=== PATIENT | male | born 1975 | race Caucasian/White ===

== ENCOUNTER 2021-04-02 13:17 | Emergency (ER) | payer OTHER, SELFPAY ==
--- NOTE | 2021-04-02 | ECG_ITS ---
Test Reason : chest pressure Blood Pressure : / mmHG Vent. Rate : 093 BPM Atrial Rate : 093 BPM P-R Int : 162 ms QRS Dur : 082 ms QT Int : 340 ms P-R-T Axes : 069 -04 -01 degrees QTc Int : 422 ms Normal sinus rhythm Minimal voltage criteria for LVH, may be normal variant ( R in aVL ) Borderline ECG When compared with ECG of 16-DEC-2015 09:39, No significant change was found Referred By: Generic ED Physician Electronically Signed By:BREE OLIVA MD
--- NOTE | ~2021-04-02 | XR_ITS ---
EXAMINATION: XR CHEST CLINICAL INFORMATION: Chest pain COMPARISON: 02/22/2014 TECHNIQUE: Frontal view of the chest was obtained. FINDINGS: No significant abnormality is noted involving the heart, lungs, mediastinum, bony thorax or soft tissues. XR/XR chest 1V IMPRESSION: Unremarkable examination.
[2021-04-02 13:20] VITALS: BP 205/124; PULSE 94; TEMP 36.5; O2SAT 97; BMI 22.9
[2021-04-02 13:40] LABS: Glucose, Whole Blood 132 mg/dL (60-115)
[2021-04-02 13:41] LABS: MANUAL DIFF FLAG NO
[2021-04-02 13:42] LABS: Basophils Percent Auto 0.7 % (0-2); Eosinophils Absolute Auto 0.1 X10*3/uL (0.0-0.4); Eosinophils Percent Auto 2.8 % (0-4); Hematocrit 40.1 % (42.0-52.0); Hemoglobin 14.3 g/dl (14.0-18.0); Imm Gran Abs Auto 0.02 X10*3/uL (0.00-0.03); Imm Gran Pct Auto 0.5 % (0.0-0.4); Lymphocytes Absolute Auto 1.3 X10*3/uL (1.2-4.9); Mean Corpuscular HGB Conc 35.7 g/dl (31.0-36.0); Mean Corpuscular Volume 98.3 fL (80.0-98.0); Mean Platelet Volume 9.3 fL (9.4-12.4); Monocytes Absolute Auto 0.4 X10*3/uL (0.1-1.2); Monocytes Percent Auto 10.1 % (2-11); Neutrophils Absolute Auto 2.4 x10*3/uL (2.0-8.3); Neutrophils Percent Auto 55.9 % (45-73); Platelet Count 197 X10*3/uL (160-400); Red Blood Count 4.08 X10*6/uL (4.60-5.80); White Blood Count 4.4 X10*3/uL (4.8-10.8)
[2021-04-02 13:58] LABS: Anion Gap 15 (12-20); Blood Urea Nitrogen 14 mg/dL (9-16); Carbon Dioxide 25 mmol/L (22-29); Chloride 101 mmol/L (96-108); Creatinine Clr Calc Pharmacy 101.8; Estimated Glomerular Filt Rate > 60; Glucose Random 144 mg/dL (60-115); Potassium 4.1 mmol/L (3.3-5.1); Sodium 137 mmol/L (135-145)
[2021-04-02 14:05] LABS: Troponin-I High Sensitivity < 3.5 ng/L (<3.5-35.0)
== END 2021-04-02 16:52 | disposition left against medical advice (07) ==
PROVIDERS: Emergency Provider Emergency Medicine; PCP Physician Assistant
DX: R07.9 Chest pain, unspecified (principal); M25.511 Pain in right shoulder; Z79.899 Other long term (current) drug therapy
CPT/HCPCS: 36415; 71045; 80048; 82947; 84484; 85025; 93005; 99283

== ENCOUNTER 2021-04-28 12:47 | Day surgery (SDC) | payer OTHER, SELFPAY ==
[2021-04-21 19:40] VITALS: BMI 22.9
--- NOTE | 2021-04-27 09:05 | P.CONAN_ITS ---
Documented by User: Veena Vo NP 04/27/21 09:07 HPI - Anesthesia Eval Consult details Narrative: 45yo M for Upper Endoscopy and Colonoscopy +ETOH PMFSH Active Problems Active Problems: All Active Problems (Updated 04/21/21 @ 19:40 by Shannon Lawrence RN) Diverticulitis (Acute) BPPV (benign paroxysmal positional vertigo) (Acute) Screening for hypercholesterolemia (Acute) Screening for diabetes mellitus (DM) (Acute) Screening for hypothyroidism (Acute) Alcohol use disorder (Acute) Annual physical exam (Acute) HTN (hypertension) (Acute) Past Medical History Medical History ETOH abuse HTN (hypertension) Social History Social History (Updated 01/10/21 @ 16:12 by Sharan Omer PA-C) [facility] Alcohol intake: current Alcohol intake frequency: 3 or more drinks per day Alcohol type: beer and hard liquor Patient Tobacco Use Status: Current everyday Tobacco user Tobacco use type: Smokeless Tobacco Smoked in Last 30 Days: Yes e-Cigarette/Vaping Use: Currently Using Second Hand Smoke Exposure: No Use of substances other than those prescribed or required for medical reasons: No Are you DNR?: No Advance Directives: No Advance Directives Information Provided: No Advance Directives on File: No Recently lost weight without trying: No Nutrition Risks: No Nutritional Risk service: No Current occupational status: employed Meds Allergies Allergy/AdvReac Type Severity Reaction Status Date / Time Azythromycin AdvReac Unknown diarrhea Uncoded 04/21/21 19:28 Exam Exam Date and Time: April 27, 2021 0905 Height,Weight and Vital Signs: Height 5 ft 10 in Weight 72.575 kg Pertinent Lab Results Pertinent Lab Results: Laboratory Tests 04/02/21 04/02/21 13:36 13:36 WBC 4.4 L Hgb 14.3 Hct 40.1 L Plt Count 197 Sodium 137 Potassium 4.1 Chloride 101 Carbon Dioxide 25 BUN 14 Creatinine 0.94 Assessment and Plan Assessment Anesthesia Assessment: Chart Reviewed Documented by User: Cassy Matias MD 04/28/21 13:29 PMF Past Medical History Medical History ETOH abuse HTN (hypertension) Family History Family history of problems with anesthesia: No Surgical History History of Problems with Anesthesia: No Social History Social History (Updated 01/10/21 @ 16:12 by Sharan Omer PA-C) Housing: Condominium Alcohol intake: current Alcohol intake frequency: 3 or more drinks per day Alcohol type: beer and hard liquor Patient Tobacco Use Status: Current everyday Tobacco user Tobacco use type: Smokeless Tobacco Smoked in Last 30 Days: Yes e-Cigarette/Vaping Use: Currently Using Second Hand Smoke Exposure: No Use of substances other than those prescribed or required for medical reasons: No Are you DNR?: No Advance Directives: No Advance Directives Information Provided: No Advance Directives on File: No Recently lost weight without trying: No Nutrition Risks: No Nutritional Risk service: No Current occupational status: employed Meds Allergies Allergy/AdvReac Type Severity Reaction Status Date / Time Azythromycin AdvReac Unknown diarrhea Uncoded 04/21/21 19:28 Exam Airway Mallampati Class: II (Permanent upper bridge in front) TM Dist: >3cm Neck ROM: Full Heart: rrr Lungs: cta Assessment and Plan Assessment Anesthesia Assessment: Anesthesia Plan Discussed and Chart Reviewed Final Anesthetic Review Family History of Problems with Anesthesia: No History of Problems with Anesthesia: No NPO: Yes ASA Class: II Final Preanesthetic Review: No Changes in Pt Med Stat, Meds/Allgs Chart Reviewed and Consent Obtained/Reviewed Patient Risk: Intermediate Procedure Risk: Intermediate Anesthetic Plan Anesthetic Plan: MAC: Disposition: Standard PACU
[2021-04-28 13:15] VITALS: BP 151/103; PULSE 105; RESP 18; TEMP 36.8; O2SAT 98
[2021-04-28 13:33] VITALS: BP 151/103; PULSE 105; RESP 18; TEMP 36.8; O2SAT 98
[2021-04-28] MEDS: Lactated Ringers 1,000 ML 100 ML IVCONT (13:35)
[2021-04-28 15:11] VITALS: BP 102/72; PULSE 95; RESP 12; TEMP 36.1; O2SAT 96
--- NOTE | 2021-04-28 15:19 | PM.OP ---
Brief Operative Note Date of Service: 04/28/21 Pre-op diagnosis: GERD, Abnormal xray GI tract Post-op diagnosis: other (Gastritis, Hiatal hernia, Diverticulosis) Procedure: EGD with biopsies, Colonoscopy to the cecum and TI Surgeon: Miguel Angel Kumar Anesthesia: MAC Was an Information Security Director used for this Procedure?: No Estimated blood loss (mL): 2.0 Pathology: other (A. Gastric antrum B. EG Junction at 35cm) Condition: stable Disposition: PACU
[2021-04-28 15:26] VITALS: BP 118/76; PULSE 94; RESP 16; TEMP 36.1; O2SAT 96
--- NOTE | 2021-04-29 01:42 | OP_ITS ---
SURGEON: Miguel Angel Kumar MD INDICATIONS: The patient presents for evaluation of gastroesophageal reflux and abnormal CT scan of colon. Full consent has been obtained from him for this, including risks of bleeding and perforation. PREOPERATIVE DIAGNOSIS: POSTOPERATIVE DIAGNOSIS: PROCEDURE PERFORMED: Esophagogastroduodenoscopy with biopsies. Colonoscopy to the cecum and terminal ileum. ESTIMATED BLOOD LOSS: COMPLICATIONS: ANESTHESIA: Monitored anesthesia care. ASSISTANTS: SPECIMENS: PREOPERATIVE DIAGNOSES: Gastroesophageal reflux and abnormal CT scan of colon. POSTOPERATIVE DIAGNOSES: Gastroesophageal reflux and abnormal CT scan of colon, hiatal hernia, gastritis, diverticulosis, internal hemorrhoids. DESCRIPTION OF PROCEDURE: The patient was placed in the left lateral decubitus position. The Olympus video gastroscope was passed in the posterior oropharynx and upper esophagus under direct vision. The scope was passed slowly to the distal esophagus. The gastroesophageal junction appeared at 35 cm. There was some very slight irregularity, but no evidence of esophagitis nor any definitive evidence of Can mucosa. There was a small to moderate-sized hiatal hernia. The scope was advanced to pylorus and the duodenum was cannulated to the descending portion. The duodenum including the bulb appeared normal without mass or ulceration. The scope was withdrawn back to the stomach. The gastric antrum had some areas of edema and erythema, but no erosions or ulceration. There was good peristalsis. Biopsies were obtained from the antrum. The scope was retroflexed visualizing the proximal stomach carefully, which appeared normal, without any sign of mass or ulceration. The scope was straightened and withdrawn back to the esophagus. Biopsies were obtained at the EG junction at 35 cm. Proximal to this, the esophageal mucosa appeared normal. The scope was withdrawn from the patient. He was turned around for the colonoscopy. The digital rectal exam revealed no abnormalities. The Olympus video pediatric colonoscope was entered into the rectum and advanced easily to the cecum. Once in the cecum, I did identify normal-appearing cecal pouch with appendiceal orifice and a normal-appearing ileocecal valve. The terminal ileum was cannulated and appeared normal. The scope was withdrawn back in the colon. The entire cecum and ileocecal valve appeared normal. The scope was slowly withdrawn assessing all mucosal surfaces carefully. Preparation was excellent. I did not visualize any sign of polyps, colitis, nor angiodysplasia. There was a mild amount of diverticulosis noted in the descending and sigmoid colon. There was no evidence of any inflammation. In the rectum, the scope was retroflexed visualizing small internal hemorrhoids, but no other pathology. The rectal mucosa appeared normal. The scope was straightened and withdrawn from the patient. He tolerated the procedure well and was returned to the recovery area in stable condition. IMPRESSION: 1. Hiatal hernia, gastroesophageal reflux. 2. Gastritis. 3. Diverticulosis. 4. Internal hemorrhoids. PLAN: The results of the biopsies will be checked. He will continue his daily omeprazole as he does report that is working well for him. Even if H pylori is present on the gastric biopsies, I would not necessarily treat that at this time as he is otherwise asymptomatic. I would recommend a repeat colonoscopy in 10 years for further screening. If things are stable, he will see me on a p.r.n. basis. MD KELTON Levin/GRISELDA / [id number] MTDD
== END 2021-04-28 15:51 | disposition home or self-care (01) ==
PROVIDERS: PCP Physician Assistant; Visit Provider Internal Medicine
PROC: (CPT 45378; principal; 2021-04-28 14:00)
DX: R93.3 Abnormal findings on diagnostic imaging of other parts of digestive tract (principal); K57.30 Diverticulosis of large intestine without perforation or abscess without bleeding; K64.8 Other hemorrhoids; K29.50 Unspecified chronic gastritis without bleeding; K21.9 Gastro-esophageal reflux disease without esophagitis; K44.9 Diaphragmatic hernia without obstruction or gangrene; I10 Essential (primary) hypertension; F10.10 Alcohol abuse, uncomplicated; Z79.899 Other long term (current) drug therapy; Z88.1 Allergy status to other antibiotic agents; F17.290 Nicotine dependence, other tobacco product, uncomplicated
CPT/HCPCS: 45378; 43239; 88305; 88342; J2250; J3010

== ENCOUNTER 2022-06-08 11:40 | Emergency (ER) | payer OTHER, SELFPAY ==
--- NOTE | ~2022-06-08 | XR_ITS ---
EXAMINATION: XR TIBIA AND FIBULA, RIGHT CLINICAL INFORMATION: Right lower leg pain COMPARISON: Right ankle 09/01/2014 TECHNIQUE: AP and lateral views of the right tibia and fibula were obtained. FINDINGS: The bones and soft tissues are normal. No fracture. Incidental bone island of the distal tibia. XR/XR tibia fibula RT 2V IMPRESSION: Normal right tibia and fibula.
--- NOTE | ~2022-06-08 | US_ITS ---
EXAMINATION: US VENOUS ULTRASOUND WITH DOPPLER LOWER EXTREMITY, RIGHT CLINICAL INFORMATION: Right lower extremity pain. COMPARISON: No similar priors. TECHNIQUE: Ultrasound of the deep veins is performed from the hip to the calf with compression sonography and color and pulse Doppler assessment. Spectral analysis with color-flow imaging is performed. FINDINGS: There is normal venous compression and respiratory variation and augmented flow. The visualized common femoral vein, superficial femoral vein, profunda femoral vein, popliteal vein, and the trifurcation region shows no evidence of deep venous thrombosis. There is no significant popliteal fossa cyst. Targeted images of the soft tissues of proximal to distal right lateral calf in the area of pain as indicated by the patient with no mass or measurable collection. If the patient's symptoms persist, followup ultrasound in 5 days 7 days might be of value to exclude proximal propagation from a non-visualized calf vein. US/US venous duplex LE RT IMPRESSION: 1. No DVT demonstrated in the right lower extremity. 2. No mass or collection in the lateral right calf within the area of pain as indicated by the patient.
[2022-06-08 11:56] VITALS: BP 137/99; PULSE 90; RESP 17; TEMP 36.5; O2SAT 98; BMI 22.9
--- NOTE | 2022-06-08 11:58 | ED.GENADULT ---
HPI - General Adult General Chief complaint: Extremity Problem <LAILA Albrecht - Last Filed: 06/08/22 11:58> Stated complaint: R calf pain <LAILA Albrecht - Last Filed: 06/08/22 11:58> Time Seen by Provider: 06/08/22 12:13 <LAILA Albrecht - Last Filed: 06/08/22 11:58> Source: patient <Irene Bynum NP - Last Filed: 06/08/22 15:03> Mode of arrival: ambulatory <Irene Bynum NP - Last Filed: 06/08/22 15:03> Limitations: no limitations <Irene Bynum NP - Last Filed: 06/08/22 15:03> History of Present Illness HPI narrative: 46-year-old male here with pain over the right anterior aspect of the lower leg which began 08:00 o'clock this morning with no known injury or trauma. Patient denies any recent travel. No associated redness, swelling, fevers, shortness of breath. Patient reports he is on his feet a lot. He normally uses work boots for walking. <Irene Bynum NP - Last Filed: 06/08/22 15:03> Related Data Home medications: Previous Rx's Medication Instructions Recorded clobetasol 0.05 % scalp solution 1 appl topical DAILY 30 days #50 mL 01/16/22 hydroxyzine HCl 10 mg tablet 20 mg PO ONCE PRN panic attacks 10 01/16/22 days #20 tabs naltrexone 50 mg tablet 50 mg PO DAILY #90 tabs 01/16/22 omeprazole 20 mg capsule,delayed 20 mg PO DAILY #90 caps 03/15/22 release lisinopril 10 mg tablet 10 mg PO DAILY #90 tabs 05/06/22 <LAILA Albrecht - Last Filed: 06/08/22 11:58> Allergies/adverse reactions: Allergies Allergy/AdvReac Type Severity Reaction Status Date / Time Azythromycin AdvReac Unknown diarrhea Uncoded 01/16/22 16:17 <LAILA Albrecht - Last Filed: 06/08/22 11:58> Review of Systems Review of Systems: Yes all other systems are reviewed and are negative <Irene Bynum NP - Last Filed: 06/08/22 15:03> Constitutional: Constitutional: Reports no additional constitutional complaints, Denies body ache(s), Denies chills, Denies fever(s), Denies headache(s) and Denies weakness <Irene Bynum TELECOM NETWORK MANAGER - Last Filed: 06/08/22 15:03> Eyes: Eyes: Reports no additional eye complaints and Denies change in vision <Irene Bynum TELECOM NETWORK MANAGER - Last Filed: 06/08/22 15:03> ENT: Reports system reviewed and no additional complaints, except as documented, Denies dizziness, Denies headache(s), Denies nasal congestion, Denies nasal discharge and Denies neck pain <Irene Bynum TELECOM NETWORK MANAGER - Last Filed: 06/08/22 15:03> Cardiovascular: Cardiovascular: Reports no additional cardiovascular complaints, Denies chest pain, Denies leg edema and Denies dyspnea <Irene Bynum TELECOM NETWORK MANAGER - Last Filed: 06/08/22 15:03> Respiratory: Respiratory: Reports no additional respiratory complaints, Denies cough and Denies dyspnea <Irene Bynum TELECOM NETWORK MANAGER - Last Filed: 06/08/22 15:03> Gastrointestinal: Gastrointestinal: Reports no additional gastrointestinal complaints, Denies abdominal pain, Denies diarrhea, Denies nausea and Denies vomiting <Irene Bynum TELECOM NETWORK MANAGER - Last Filed: 06/08/22 15:03> Genitourinary: Genitourinary: Denies urinary incontinence <Irene Bynum TELECOM NETWORK MANAGER - Last Filed: 06/08/22 15:03> Musculoskeletal: Musculoskeletal: Reports no additional musculoskeletal complaints, Denies back pain, Reports arthralgias, Denies joint swelling, Denies limited range of motion, Denies neck pain, Denies numbness and Denies tingling <Irene Bynum TELECOM NETWORK MANAGER - Last Filed: 06/08/22 15:03> Integumentary/Breasts: Skin/Breast: Reports system reviewed and no additional complaints, except as docu and Denies rash <Irene Bynum TELECOM NETWORK MANAGER - Last Filed: 06/08/22 15:03> Neurologic: Reports system reviewed and no additional complaints, except as documented, Denies dizziness, Denies headache(s), Denies numbness, Denies tingling and Denies weakness <Irene Bynum NP - Last Filed: 06/08/22 15:03> [facility] Past Medical History Attestation statement: The following information was validated with the patient. <Irene Bynum NP - Last Filed: 06/08/22 15:03> Source: old records reviewed and nursing notes reviewed <Irene Bynum NP - Last Filed: 06/08/22 15:03> Medical History: Medical History ETOH abuse HTN (hypertension) <LAILA Albrecht - Last Filed: 06/08/22 11:58> Social History Social History: Social History [facility] Alcohol intake: current Alcohol intake frequency: 3 or more drinks per day Alcohol type: beer and hard liquor Patient Tobacco Use Status: Current everyday Tobacco user Tobacco use type: Smokeless Tobacco e-Cigarette/Vaping Use: Currently Using Second Hand Smoke Exposure: No Advance Directives: No Advance Directives Information Provided: No service: No Current occupational status: employed <LAILA Albrecht - Last Filed: 06/08/22 11:58> Physical Exam ED Vital Signs: Vital Signs - 24 hr 06/08/22 11:56 Temperature 97.7 F Pulse Rate 90 Respiratory Rate 17 Blood Pressure 137/99 H Pulse Oximetry 98 Oxygen Delivery Method Room Air BMI result Body Mass Index 22.9 <LAILA Albrecht - Last Filed: 06/08/22 11:58> Vital Signs - 24 hr 06/08/22 11:56 Temperature 97.7 F Pulse Rate 90 Respiratory Rate 17 Blood Pressure 137/99 H Pulse Oximetry 98 Oxygen Delivery Method Room Air BMI result Body Mass Index 22.9 <Irene Bynum NP - Last Filed: 06/08/22 15:03> Const General: cooperative, healthy appearing, comfortable and no acute distress <Irene Bynum NP - Last Filed: 06/08/22 15:03> Orientation/consciousness: patient oriented x3 <Irene Bynum, TELECOM NETWORK MANAGER - Last Filed: 06/08/22 15:03> Limitations: no limitations <Irene Bynum, TELECOM NETWORK MANAGER - Last Filed: 06/08/22 15:03> HENMT Head: Yes normal to inspection <Irene Bynum, TELECOM NETWORK MANAGER - Last Filed: 06/08/22 15:03> Ears: hearing grossly normal bilaterally <Irene Bynum, TELECOM NETWORK MANAGER - Last Filed: 06/08/22 15:03> Eyes General: appearance normal, both eyes and all related structures <Irene Bynum, TELECOM NETWORK MANAGER - Last Filed: 06/08/22 15:03> Pupils: Equal, round and reactive pupils present <Irene Bynum, TELECOM NETWORK MANAGER - Last Filed: 06/08/22 15:03> Neck Neck: Yes normal visual inspection <Irene Bynum, TELECOM NETWORK MANAGER - Last Filed: 06/08/22 15:03> Chest Chest palpation & inspection: normal inspection of the chest <Irene Bynum, TELECOM NETWORK MANAGER - Last Filed: 06/08/22 15:03> Resp Effort & Inspection: normal respiratory effort <Irene Bynum, TELECOM NETWORK MANAGER - Last Filed: 06/08/22 15:03> Cardio Peripheral pulses: Peripheral pulses 2+ throughout <Irene Bynum, TELECOM NETWORK MANAGER - Last Filed: 06/08/22 15:03> GI Inspection: Yes normal to inspection <Irene Bynum, TELECOM NETWORK MANAGER - Last Filed: 06/08/22 15:03> Skin General skin exam: no rashes or lesions noted <Irene Bynum, TELECOM NETWORK MANAGER - Last Filed: 06/08/22 15:03> Neuro General: patient oriented x3 and moves all extremities <Irene Bynum, TELECOM NETWORK MANAGER - Last Filed: 06/08/22 15:03> Cranial nerves: Yes Equal, round and reactive pupils present <Irene Bynum, TELECOM NETWORK MANAGER - Last Filed: 06/08/22 15:03> Cognition (Neuro): normal cognition <Irene Bynum, TELECOM NETWORK MANAGER - Last Filed: 06/08/22 15:03> Gait exam (Neuro): Normal gait present <Irene Bynum, TELECOM NETWORK MANAGER - Last Filed: 06/08/22 15:03> Extrem General: Yes normal to inspection <AUNDREA Lopez Last Filed: 06/08/22 15:03> Ankle/foot/toe images: 1. Mild tenderness on palpation. This is worsened with movement of the ankle and foot. Full range of motion of the right knee. Full range of motion of the right ankle and foot. Sensation is intact distally. No posterior calf pain. Negative Mcgrath test. Palpable DP and PT pulses <LAILA Albrecht - Last Filed: 06/08/22 11:58> 1. Mild tenderness on palpation. This is worsened with movement of the ankle and foot. Full range of motion of the right knee. Full range of motion of the right ankle and foot. Sensation is intact distally. No posterior calf pain. Negative Mcgrath test. Palpable DP and PT pulses <Irene Bynum NP - Last Filed: 06/08/22 15:03> Course Course Course Narrative: RME performed by Rebekah Moore PA-C. Patient is 46 year old assigned male at presenting to the emergency department with right lower leg pain. Imaging ordered. Patient placed back in the waiting room pending room availability and results. <LAILA Albrecht Last Filed: 06/08/22 11:58> Reevaluation(s) Reevaluation #1: Ultrasound is negative for DVT. X-ray shows no evidence of a fracture. Likely strain. Recommend ice, follow-up with primary care for any persistent symptoms <AUNDREA Lopez Last Filed: 06/08/22 15:03> Medical Decision Making Medical Decision Making MDM Narrative: 46-year-old male here with atraumatic right anterior lower leg pain which began today at 08:00. Normal in appearance. No associated numbness, weakness, redness, swelling. Full range of motion. Negative Mcgrath test. CMS intact distally. Likely strain Ultrasound and x-ray ordered from triage <AUNDREA Lopez Last Filed: 06/08/22 15:03> Differential Diagnosis Differential Diagnoses: The differential diagnosis associated with the presentation includes <AUNDREA Lopez Last Filed: 06/08/22 15:03> Strain Less likely DVT, Achilles tendon rupture, cellulitis <Irene Bynum NP - Last Filed: 06/08/22 15:03> Independent Interpretation I performed an independent interpretation of an: Plain X-Ray and Ultrasound <Irene Bynum NP - Last Filed: 06/08/22 15:03> Interpretation: I independently reviewed the x-ray and the ultrasound and agree with radiologist report <Irene Bynum NP - Last Filed: 06/08/22 15:03> Radiology Impression Discussion of test interpretation with radiology: I have reviewed the radiologist's reading. <Irene Bynum NP - Last Filed: 06/08/22 15:03> Radiologist Impression: [place] [id number] Ultrasound Report Signed Patient: Chance Ribeiro MR#: [id number] : 1975 Acct:[id number] Age/Sex: 46 / M ADM Date: 06/08/22 Loc: .ED Attending Dr: Ordering Physician: Rebekah Moore Date of Service: 06/08/22 Procedure(s): US venous duplex LE RT Accession Number(s): [id number] cc: Rebekah Moore~ EXAMINATION:? US VENOUS ULTRASOUND WITH DOPPLER LOWER EXTREMITY, RIGHT CLINICAL INFORMATION:? Right lower extremity pain. COMPARISON:? No similar priors. TECHNIQUE: Ultrasound of the deep veins is performed from the hip to the calf with compression sonography and color and pulse Doppler assessment. Spectral analysis with color-flow imaging is performed. FINDINGS: There is normal venous compression and respiratory variation and augmented flow. The visualized common femoral vein, superficial femoral vein, profunda femoral vein, popliteal vein, and the trifurcation region shows no evidence of deep venous thrombosis. ? There is no significant popliteal fossa cyst. Targeted images of the soft tissues of proximal to distal right lateral calf in the area of pain as indicated by the patient with no mass or measurable collection. If the patient's symptoms persist, followup ultrasound in 5 days 7 days might be of value to exclude proximal propagation from a non-visualized calf vein. US/US venous duplex LE RT IMPRESSION: 1.? No DVT demonstrated in the right lower extremity. 2.? No mass or collection in the lateral right calf within the area of pain as indicated by the patient. [address] [address] XRay Report Signed Patient: Chance Ribeiro MR#: [id number] : 1975 Acct:[id number] Age/Sex: 46 / M ADM Date: 06/08/22 Loc: HO.ED Attending Dr: Ordering Physician: Rebekah Moore Date of Service: 06/08/22 Procedure(s): XR tibia fibula RT 2V Accession Number(s): [id number] cc: Rebekah Moore~ EXAMINATION: XR TIBIA AND FIBULA, RIGHT CLINICAL INFORMATION: Right lower leg pain? COMPARISON: Right ankle 09/01/2014? TECHNIQUE: AP and lateral views of the right tibia and fibula were obtained. FINDINGS: The bones and soft tissues are normal. No fracture. Incidental bone island of the distal tibia.? XR/XR tibia fibula RT 2V IMPRESSION: Normal right tibia and fibula. ? <Irene Bynum NP - Last Filed: 06/08/22 15:03> Discharge Plan Discharge Clinical Impression: Muscle strain of right lower leg <LAILA Albrecht - Last Filed: 06/08/22 11:58> Patient Disposition: Home, Self-Care <LAILA Albrecht - Last Filed: 06/08/22 11:58> Instructions: Muscle Strain (ED) <LAILA Albrecht - Last Filed: 06/08/22 11:58> Additional Instructions: Ultrasound shows no signs of blood clot Your x-ray looks normal Apply ice to the affected area Motrin or Tylenol for pain Follow-up with primary care doctor for any persistent symptoms <LAILA Albrecht - Last Filed: 06/08/22 11:58> Prescriptions: No Action omeprazole 20 mg capsule,delayed release(DR/EC) 20 mg PO DAILY Qty: 90 1RF lisinopril 10 mg tablet 10 mg PO DAILY Qty: 90 1RF naltrexone 50 mg tablet 50 mg PO DAILY Qty: 90 1RF hydroxyzine HCl 10 mg tablet 20 mg PO ONCE PRN (Reason: panic attacks) 10 Days Qty: 20 1RF clobetasol 0.05 % solution 1 appl topical DAILY 30 Days Qty: 50 1RF <LAILA Albrecht - Last Filed: 06/08/22 11:58> Referrals: Sharan Omer PA-C [Primary Care Provider] - 10 days <LAILA Albrecht - Last Filed: 06/08/22 11:58> Interventions: ED Discharge Assessment Last Done: 06/08/22 14:31 <LAILA Albrecht - Last Filed: 06/08/22 11:58> Discharge Date/Time: 06/08/22 14:34 <LAILA Albrecht - Last Filed: 06/08/22 11:58>
== END 2022-06-08 14:34 | disposition home or self-care (01) ==
PROVIDERS: Emergency Provider Emergency Medicine Emergency Medical Services; PCP Physician Assistant
DX: S86.911A Strain of unspecified muscle(s) and tendon(s) at lower leg level, right leg, initial encounter (principal); X58.XXXA Exposure to other specified factors, initial encounter; M79.661 Pain in right lower leg; I10 Essential (primary) hypertension; Z79.899 Other long term (current) drug therapy; Y93.9 Activity, unspecified; Y92.9 Unspecified place or not applicable; Y99.9 Unspecified external cause status
CPT/HCPCS: 73590; 93971; 99282; 99284

== ENCOUNTER 2022-08-24 19:52 | Observation (INO) | payer OTHER, SELFPAY ==
--- NOTE | ~2022-08-24 | CT_ITS ---
EXAMINATION: CT ABDOMEN AND PELVIS WITH CONTRAST CLINICAL INFORMATION: Right lower quadrant pain. COMPARISON: No recent priors. TECHNIQUE: Multidetector volumetric images were obtained from the superior aspect of the liver through the pubic symphysis following administration 85 mL of Omnipaque 350 intravenous contrast. Sagittal and coronal reformatted images were obtained on the technologist's workstation. Oral contrast: No This CT examination was performed using dose optimization techniques as appropriate, variously including the following: *Automated exposure control *Adjustment of mA and/or kV according to patient size (this includes techniques or standardized protocols for targeted exams where dose is matched to indication/reason for exam; i.e. extremities or head) *Use of iterative reconstruction technique DLP: 472 mGy-cm FINDINGS: LUNG BASES: Predominantly streaky bibasilar airspace opacities with mild surrounding groundglass attenuation. LIVER, GALLBLADDER, AND BILIARY TREE: The liver is enlarged measuring 20 cm craniocaudally and demonstrates decreased parenchymal attenuation. There is a 1.2 cm heterogeneously enhancing lesion in the surface of the posterior right hepatic lobe (3:23). There is an immediately adjacent ill-defined hypodensity measuring 1 cm (3:20). No biliary ductal dilatation. The gallbladder is underdistended with no evidence of radiopaque gallstones, gallbladder wall thickening, or obvious pericholecystic inflammatory changes. PANCREAS: Unremarkable. SPLEEN: Unremarkable. ADRENAL GLANDS: Unremarkable. KIDNEYS AND URETERS: Left-sided extrarenal pelvis. Punctate nonobstructive calculus in the upper right kidney (8:72). Symmetric nephrograms. No hydronephrosis. No perinephric fat stranding. No enhancing renal lesion. BLADDER: Diffuse urinary bladder wall thickening. GASTROINTESTINAL TRACT: Small hiatal hernia with equivocal circumferential wall thickening of the lower esophagus. Fluid filled loops of the small bowel in the right hemiabdomen. Normal appendix. Mild colonic diverticulosis without significant pericolonic fat stranding to suspect acute diverticulitis. ABDOMINAL WALL: No significant hernia is appreciated. LYMPH NODES: Fat stranding with a morro appearance in the upper to mid mesentery with associated prominent mesenteric lymph nodes. VASCULAR: Normal caliber abdominal aorta. PELVIC VISCERA: Unremarkable. OSSEOUS STRUCTURES: Subtle serpiginous sclerosis in the left femoral head suggesting avascular necrosis. Degenerative changes of the spine. CT/CT abdomen pelvis w IV con IMPRESSION: 1. Fluid-filled loops of small bowel in the right hemiabdomen are nonspecific and could be associated with gastroenteritis. No evidence of bowel obstruction. Normal appendix. 2. Diffuse urinary bladder wall thickening, recommend correlation with urinalysis. 3. Nonspecific morro fatty haziness of the upper mesentery with scattered prominent mesenteric lymph nodes, a differential consideration includes mesenteric panniculitis. 4. Small hiatal hernia with equivocal circumferential wall thickening of the lower esophagus. Correlate clinically for reflux disease and esophagitis. 5. Hepatomegaly and hepatic steatosis. 6. Nonspecific incompletely characterized liver lesions, one demonstrating heterogeneous enhancement. Recommend further evaluation with a dynamic abdominal MRI with and without IV contrast. 7. Punctate nonobstructive right-sided renal calculus. 8. Predominantly streaky bibasilar airspace opacities with mild surrounding groundglass attenuation, favoring to represent subsegmental atelectasis. However, early infiltrate/aspiration are difficult to exclude in the appropriate clinical context.
[2022-08-24 19:54] VITALS: BP 125/88; PULSE 78; RESP 16; TEMP 36.3; O2SAT 98; BMI 23.8
--- NOTE | 2022-08-24 19:58 | ED_ITS ---
HPI - Back Pain/Injury General Chief Complaint: Back Pain/Injury Stated Complaint: Back pain Time Seen by Provider: 08/24/22 21:17 Source: patient and other (Girlfriend, Peg) Mode of arrival: ambulatory Limitations: no limitations History of Present Illness HPI Narrative: 46-year-old male who presents emergency department for evaluation right lower back pain and right lower quadrant abdominal pain. Patient states that he woke up this morning he had pain in his right lower abdomen. States that the pain was mild and was worse with breathing and with movement. States the pain then migrated to his back. He states the pain is gotten progressively worse since onset. He is currently complaining of a sharp pain in his right lower quadrant and lower aspect of his back which is 6/10. He denies fever, chills, nausea, vomiting, diarrhea, black stools or bloody stools. He denied frequency or dysuria. This is 1st episode of this type of pain. Patient states he did have a recent tick bite he has been feeling fatigued over the past week. He states he has been pain in his leg muscles bilaterally. He has not noticed a rash. He is concerned that he may have a tick-borne illness. Related Data Previous Rx's Medication Instructions Recorded clobetasol 0.05 % scalp solution 1 appl topical DAILY 30 days #50 mL 01/16/22 omeprazole 20 mg capsule,delayed 20 mg PO DAILY #90 caps 03/15/22 release lisinopril 5 mg tablet 5 mg PO DAILY 30 days #30 tabs 07/17/22 prednisone 10 mg tablet 10 mg PO DAILY 10 days #10 tabs 07/17/22 Allergies Allergy/AdvReac Type Severity Reaction Status Date / Time Azythromycin AdvReac Unknown diarrhea Uncoded 07/17/22 16:06 Review of Systems Review of Systems: Yes all other systems are reviewed and are negative [facility] Past Medical History [facility] Narrative: Social history: He denies tobacco, alcohol and drug use. He states that he was drinking heavily but stopped drinking alcohol 2 months prior. Medical History ETOH abuse HTN (hypertension) Surgical History No pertinent past surgical history Social History Social History [facility] Alcohol intake: current Alcohol intake frequency: holidays/special occasions only Alcohol type: beer and hard liquor Patient Tobacco Use Status: Former Tobacco user Tobacco use type: Smokeless Tobacco Smoked in Last 30 Days: No e-Cigarette/Vaping Use: Former Use Second Hand Smoke Exposure: No Use of substances other than those prescribed or required for medical reasons: No Advance Directives: No Advance Directives Information Provided: No service: No Current occupational status: employed Current occupational exposures/hazards: No Cognitive needs: No Hearing needs: No Vision needs: No Physical Exam Vital Signs: Vital Signs: Last Vital Signs Temp 97.6 F 08/25/22 01:05 Pulse 82 08/25/22 01:05 Resp 16 08/25/22 01:05 BP 140/99 H 08/25/22 01:05 Pulse Ox 96 08/25/22 01:05 O2 Del Method Room Air 08/25/22 01:05 BMI result Body Mass Index 23.8 Const: General: cooperative and no acute distress Or ientation/consciousness: oriented to person and oriented to place Limitat ions: no limitations HEENT: Head: Yes normal to inspection, Yes normocephalic and Yes atraumatic Ears: external ears normal General nose exam: Normal external nose present Face and sinus: Yes normal facial exam Mouth: Normal oral and palatal mucosa present Throat: Yes posterior oropharynx normal Eyes: General: appearance normal, both eyes and all related structures Neck: Neck: Yes normal visual inspection, Yes no lymphadenopathy, Yes trachea midline and Yes supple Chest: Chest palpation & inspection: normal inspection of the chest and normal palpation of entire chest wall Resp: Effort & Inspection: normal respiratory effort and able to speak in complete sentences Auscultation: clear to auscultation bilaterally Cardio: Rate: regular rate Rhythm: regular rhythm Heart sounds: S1 normal heart sound present, S2 normal heart sound present and no murmurs GI: Other: Patient's abdomen appears to be normal with no distension, has normoactive bowel sounds, he has moderate right lower quadrant tenderness with no rebound, no voluntary or involuntary guarding, there is no rash or lesions noted on his right lower abdomen or flank area : General: Yes no CVA tenderness Back/Spine/Pelvis: Other: Patient has no vertebral tenderness and no tenderness to palpation of his paraspinal muscles bilaterally in the lumbar sacral area Back: no CVA tenderness Skin: General skin exam: no rashes or lesions noted Neuro: General: oriented to person and oriented to place Cognition (Neuro): normal cognition Extrem: General: Yes normal to inspection Psych: Appearance: grossly normal Speech and movement: Normal speech and movement present Affect: normal affect Attitude: cooperative Course Course Course Narrative: This is a rapid medical exam. Deferred additional HPI, ROS, PE to primary provider. 46 yo male w/ history of HTN, GERD here with right flank/abdomen pain which began today. NO urinary symptoms/vomiting/fevers. Will check UA, labs. VSS Medications Administered Discontinued Medications Generic Name Dose Route Start Last Admin Trade Name Freq PRN Reason Stop Dose Admin Sodium Chloride 1,000 mls @ 999 mls/hr 08/24/22 22:09 08/24/22 23:50 Ns IV 08/24/22 23:09 Infused .Q1H1M STA Infusion Iohexol 100 ml 08/24/22 22:44 08/24/22 22:44 Iohexol 350 Mg/Ml 100 Ml Infus..Btl IV 08/24/22 22:45 85 ml ONCE ONE Administration Ketorolac Tromethamine 15 mg 08/24/22 22:09 08/24/22 22:24 Ketorolac Tromethamine 15 Mg/Ml Vial IVPUSH 08/24/22 22:10 15 mg ONCE STA Administration Morphine Sulfate 4 mg 08/24/22 23:29 08/24/22 23:50 Morphine Sulfate 4 Mg/Ml Cartridge IVPUSH 08/24/22 23:30 4 mg ONCE STA Administration Protocol Medical Decision Making Medical Decision Making [facility] Narrative: 46-year-old male who presents emergency department for evaluation of gradual onset right lower quadrant and right lower back pain which began this morning is got progressively worse. Patient had no other concerning symptoms however he has noted fatigue over the last week with pain in the muscles of his lower extremities. He states he did have a recent tick bite knees concerned that he might have tick-borne illness. Patient's vital signs were normal. Patient's physical examination did reveal right lower quadrant, moderate tenderness. My interpretation the patient's laboratory evaluation is as follows: CBC, CMP, lipase were normal. Urinalysis was negative. I did order a CT scan of the abdomen pelvis with IV contrast to rule out appendicitis. I also ordered a CK and tick-borne illness panel. Patient was treated with normal saline IV x1 L and Toradol 15 mg IV. 0056: Patient had minimal improvement with the above pain medication and required morphine 4 mg IV. Patient continues to have moderate right lower quadrant tenderness. CT scan abdomen pelvis with IV contrast revealed an enlarged liver which is most likely secondary to his alcohol use disorder and a normal appendix. The patient has fluid-filled loops of bowel in the right lower quadrant and hazy mesenteric fat infiltration with mesenteric lymph nodes. Given his persistent tenderness, I am still concerned that he may have appendicitis therefore I will discuss disposition with the covering surgeon, Dr. Stringer. 0023: I did discuss the patient's presentation with Dr. Stringer. She did not think that the patient had acute appendicitis. Given the mesenteric adenitis, she felt that the patient could have a viral process. After discussion, was felt that the patient should be admitted to the hospitalist service for management of his the pain and nausea. She did agree to consult to help manage the patient. She recommended that the patient to repeat blood work in the morning. I will discuss admission with the covering hospitalist. Differential Diagnosis Differential diagnosis includes but is not limited to appendicitis, kidney stone, ureteral stone, pancreatitis, musculoskeletal strain, tick-borne illness Admission/Observation Consideration of admission/observation: Escalation of care including admission/observation considered Consult Healthcare Provider Management of the patient was discussed with: Manager Oncology (General surgeon, Dr. Stringer) Lab Data MDM Lab Attestation statement: I reviewed the patient's lab results. 08/24/22 20:13 08/24/22 20:13 Labs: Lab Results 08/24/22 08/24/22 08/24/22 Range/Units 20:13 20:13 21:12 WBC 7.0 (4.8-10.8) X10*3/uL RBC 4.43 L (4.60-5.80) X10*6/uL Hgb 13.9 L (14.0-18.0) g/dl Hct 40.0 L (42.0-52.0) % MCV 90.3 (80.0-98.0) fL MCH 31.4 (27.0-33.0) pg MCHC 34.8 (31.0-36.0) g/dl RDW 11.9 (11.0-16.0) % Plt Count 282 D (160-400) X10*3/uL MPV 9.3 L (9.4-12.4) fL Immature Gran % (Auto) 0.4 (0.0-0.4) % Neut % (Auto) 61.6 (45-73) % Lymph % (Auto) 25.6 (20-40) % [place] % (Auto) 9.8 (2-11) % Eos % (Auto) 2.3 (0-4) % Baso % (Auto) 0.3 (0-2) % Lymph # (Auto) 1.8 (1.2-4.9) X10*3/uL [place] # (Auto) 0.7 (0.1-1.2) X10*3/uL Eos # (Auto) 0.2 (0.0-0.4) X10*3/uL Baso # (Auto) 0.0 (0.0-0.2) X10*3/uL Abs Immat Gran (auto) 0.03 (0.00-0.03) X10*3/uL Absolute Neuts (auto) 4.3 (2.0-8.3) x10*3/uL Absolute Nucleated RBC 0.000 (0.0-0.012) X10*3/uL Nucleated RBC % (auto) 0.0 (0.0-0.2) /100WBC Sodium 138 (135-145) mmol/L Potassium 4.0 (3.3-5.1) mmol/L Chloride 103 (96-108) mmol/L Carbon Dioxide 27 (22-29) mmol/L Anion Gap 12 (12-20) BUN 16 (9-16) mg/dL Creatinine 0.85 (0.5-1.4) mg/dL Estim Creat Clear Calc 112.1 Estimated GFR > 60 Random Glucose 105 (60-115) mg/dL Calcium 9.4 (8.4-10.2) mg/dL Total Bilirubin 0.3 (0.0-1.0) mg/dL Direct Bilirubin 0.1 (0.0-0.5) mg/dL AST 19 (5-37) U/L ALT 28 (0-40) U/L Alkaline Phosphatase 54 (39-117) U/L Total Creatine Kinase 221 H (38-174) U/L Total Protein 7.7 (6.5-8.0) g/dL Albumin 4.1 (3.5-5.0) g/dL Lipase 25 (8-78) U/L Urine Color Yellow Urine Appearance Clear Urine pH 5.5 (5.0-9.0) Ur Specific [place] 1.020 (1.005-1.025) Urine Protein Negative (Neg-Trace) mg/dL Urine Glucose (UA) Negative (Negative) mg/dL Urine Ketones Negative (Negative) mg/dL Urine Blood Negative (Negative) Urine Nitrite Negative (Negative) Ur Leukocyte Esterase Negative (Negative) Radiology Impression Discussion of test interpretation with radiology: I have reviewed the radiologist's reading. Radiologist Impression: CT abdomen pelvis w IV con IMPRESSION: 1. Fluid-filled loops of small bowel in the right hemiabdomen are nonspecific and could be associated with gastroenteritis. No evidence of bowel obstruction. Normal appendix. 2. Diffuse urinary bladder wall thickening, recommend correlation with urinalysis. 3. Nonspecific [place]ro fatty haziness of the upper mesentery with scattered prominent mesenteric lymph nodes, a differential consideration includes mesenteric panniculitis. 4. Small hiatal hernia with equivocal circumferential wall thickening of the lower esophagus. Correlate clinically for reflux disease and esophagitis. 5. Hepatomegaly and hepatic steatosis. 6. Nonspecific incompletely characterized liver lesions, one demonstrating heterogeneous enhancement. Recommend further evaluation with a dynamic abdominal MRI with and without IV contrast. 7. Punctate nonobstructive right-sided renal calculus. 8. Predominantly streaky bibasilar airspace opacities with mild surrounding groundglass attenuation, favoring to represent subsegmental atelectasis. However, early infiltrate/aspiration are difficult to exclude in the appropriate clinical context. Dictated By:Dayana Alberto Discharge Plan Discharge Patient Disposition: Admitted As Inpatient Prescriptions: No Action omeprazole 20 mg capsule,delayed release(DR/EC) 20 mg PO DAILY Qty: 90 1RF clobetasol 0.05 % solution 1 appl topical DAILY 30 Days Qty: 50 1RF prednisone 10 mg tablet 10 mg PO DAILY 10 Days Qty: 10 0RF lisinopril 5 mg tablet 5 mg PO DAILY 30 Days Qty: 30 3RF
[2022-08-24 20:18] LABS: MANUAL DIFF FLAG NO
[2022-08-24 20:19] LABS: Basophils Percent Auto 0.3 % (0-2); Eosinophils Absolute Auto 0.2 X10*3/uL (0.0-0.4); Eosinophils Percent Auto 2.3 % (0-4); Hemoglobin 13.9 g/dl (14.0-18.0); Imm Gran Abs Auto 0.03 X10*3/uL (0.00-0.03); Imm Gran Pct Auto 0.4 % (0.0-0.4); Lymphocytes Absolute Auto 1.8 X10*3/uL (1.2-4.9); Lymphocytes Percent Auto 25.6 % (20-40); Mean Corpuscular HGB Conc 34.8 g/dl (31.0-36.0); Mean Corpuscular Hemoglobin 31.4 pg (27.0-33.0); Mean Corpuscular Volume 90.3 fL (80.0-98.0); Mean Platelet Volume 9.3 fL (9.4-12.4); Monocytes Absolute Auto 0.7 X10*3/uL (0.1-1.2); Monocytes Percent Auto 9.8 % (2-11); Neutrophils Absolute Auto 4.3 x10*3/uL (2.0-8.3); Neutrophils Percent Auto 61.6 % (45-73); Platelet Count 282 X10*3/uL (160-400); Red Blood Count 4.43 X10*6/uL (4.60-5.80); Red Cell Distribution Width 11.9 % (11.0-16.0)
[2022-08-24 20:33] LABS: Alanine Aminotransferase 28 U/L (0-40); Albumin Level 4.1 g/dL (3.5-5.0); Alkaline Phosphatase 54 U/L (39-117); Anion Gap 12 (12-20); Aspartate Amino Transferase 19 U/L (5-37); Bilirubin Direct 0.1 mg/dL (0.0-0.5); Bilirubin Total 0.3 mg/dL (0.0-1.0); Blood Urea Nitrogen 16 mg/dL (9-16); Calcium 9.4 mg/dL (8.4-10.2); Carbon Dioxide 27 mmol/L (22-29); Chloride 103 mmol/L (96-108); Creatinine Clr Calc Pharmacy 112.1; Estimated Glomerular Filt Rate > 60; Glucose Random 105 mg/dL (60-115); Lipase 25 U/L (8-78); Sodium 138 mmol/L (135-145); Total Protein 7.7 g/dL (6.5-8.0)
[2022-08-24 21:20] LABS: Appearance Urine Clear; Color Urine Yellow; Glucose Urine UA Negative (Negative); Leukocyte Esterase Urine Negative (Negative); Nitrite Urine Negative (Negative); PH 5.5 (5.0-9.0); Urine Blood Negative (Negative); Urine Ketones Negative (Negative); Urine Protein Negative (Neg-Trace)
[2022-08-24] MEDS: 0.9 % Sodium Chloride 1,000 ML 999 ML IV (22:24)
[2022-08-24] MEDS: Ketorolac Tromethamine 15 MG/ML VIAL IVPUSH (22:24)
--- NOTE | 2022-08-24 22:27 | PC.NURSE ---
this rn placed 20g iv in r ac. pt tolerated well. pt medicated according to may. pt awaiting CT scan. pt partner at bedside
[2022-08-24] MEDS: iohexoL 350 MG/ML 100 ML INFUS..BTL IV (22:44)
[2022-08-24] MEDS: Morphine Sulfate 4 MG/ML CARTRIDGE IVPUSH (23:50)
[2022-08-25 01:05] VITALS: BP 140/99; PULSE 82; RESP 16; TEMP 36.4; O2SAT 96
[2022-08-25] MEDS: Morphine Sulfate 4 MG/ML CARTRIDGE IVPUSH ×5 (01:42→21:22)
[2022-08-25] MEDS: Lactated Ringers 1,000 ML 125 ML IVCONT ×3 (01:46→16:08)
--- NOTE | 2022-08-25 01:52 | PC.NURSE ---
pt medicated according to may. med rec performed by this rn with pt at bedside
[2022-08-25 05:58] VITALS: BP 107/73; PULSE 67; RESP 17; TEMP 36.4; O2SAT 96
--- NOTE | 2022-08-25 06:18 | PM.IMHP ---
History of Present Illness Date of Service: 08/25/22 Chief Complaint: abd pain 46-year-old male past medical history of hypertension, documented history of alcohol abuse although patient denies it to me, presents the hospital with complaints of what initially started as abdominal pain and has now become back pain. States that his pain started at work today, localized to the right lower quadrant, , eventually travel to his right lower back, is now localized to the back. the pain is constant, severe, no alleviating factors but exacerbated by movement or hiccups,, cramping /sharp, Patient denies any fever, no chills, , denies any chest pain, no shortness of breath, no nausea or vomiting, no diarrhea constipation, no urinary symptoms and no lower extremity edema. On arrival to the ED patient hemodynamically stable with no fever, all other vitals normal Labs are significant for WBC count of 7.0, hemoglobin of 13.9, hematocrit 40, labs otherwise unremarkable, no LFT elevations, UA negative, Abdominal pelvic CT shows fluid-filled loops of small bowel in the right hemiabdomen are nonspecific and can be associated with gastroenteritis, no evidence of bowel obstruction, normal appendix, nonspecific [place] fatty haziness of the upper mesentery with scattered prominent mesenteric lymph nodes nonspecific but can include pannicolitis patient also has evidence of liver lesions recommending further evaluation with MRI and subsegmental atelectasis on lungs. This was discussed with General surgery, does not feel that this is acute infection that needs surgical intervention but does recommend admission of patient to hospital an evaluation by General surgery in a.m. patient continues to have significant pain. Review of Systems Review of Systems: Yes all other systems are reviewed and are negative [facility] Medical History ETOH abuse HTN (hypertension) Surgical History No pertinent past surgical history Social History Housing: Condominium Alcohol intake: current Alcohol intake frequency: holidays/special occasions only Alcohol type: beer and hard liquor Patient Tobacco Use Status: Former Tobacco user Tobacco use type: Smokeless Tobacco Smoked in Last 30 Days: No e-Cigarette/Vaping Use: Former Use Second Hand Smoke Exposure: No Use of substances other than those prescribed or required for medical reasons: No Advance Directives: No Advance Directives Information Provided: No service: No Current occupational status: employed Current occupational exposures/hazards: No Cognitive needs: No Hearing needs: No Vision needs: No Meds Allergies Allergy/AdvReac Type Severity Reaction Status Date / Time Azythromycin AdvReac Unknown diarrhea Uncoded 07/17/22 16:06 Active Medications: Current Medications Acetaminophen (Acetaminophen 325 Mg Tablet) 650 mg PO Q6H PRN PRN Reason: Pain, Mild (Pain Scale 1-3) Lactated Ringer's (Lr) 1,000 mls @ 125 mls/hr IVCONT .Q8H [facility] Last Admin: 08/25/22 01:46 Dose: 125 mls/hr Morphine Sulfate (Morphine Sulfate 4 Mg/Ml Cartridge) 4 mg IVPUSH Q4H PRN; Protocol PRN Reason: Pain, Severe (Pain Scale 7-10) Ondansetron HCl (Ondansetron Hcl 4 Mg/2 Ml Vial) 4 mg IVPUSH Q8H PRN PRN Reason: Nausea and Vomiting Sodium Chloride (0.9 % Sodium Chloride Flush 3 Ml Syringe) 3 ml IVFLUSH QSHIFT [facility] Physical Exam Vital Signs and Narrative: Vital Signs: Last Vital Signs Temp 97.6 F 08/25/22 05:58 Pulse 67 08/25/22 05:58 Resp 17 08/25/22 05:58 BP 107/73 08/25/22 05:58 Pulse Ox 96 08/25/22 05:58 O2 Del Method Room Air 08/25/22 05:58 BMI result Body Mass Index 23.8 Const: General: cooperative and no acute distress Orientation/consciousness: patient oriented x3 Eyes: General: appearance normal, both eyes and all related structures Resp: Effort & Inspection: normal respiratory effort Auscultation: clear to auscultation bilaterally Cardio: Rate: regular rate Rhythm: regular rhythm GI: Other: abdomen is tender in the right lower quadrant on deep palpation Palpation (GI): Soft to palpation Auscultation: normal bowel sounds Skin: General skin exam: no rashes or lesions noted Neuro: General: patient oriented x3 Cognition (Neuro): normal cognition Extrem: General: Yes normal to inspection and Yes no pedal edema Results Labs 08/24/22 20:13 08/24/22 20:13 Labs: Laboratory Results - last 24 hr 08/24/22 08/24/22 08/24/22 20:13 20:13 21:12 MCV 90.3 MCH 31.4 MCHC 34.8 RDW 11.9 Plt Count 282 D MPV 9.3 L Immature Gran % (Auto) 0.4 Neut % (Auto) 61.6 Lymph % (Auto) 25.6 [place] % (Auto) 9.8 Eos % (Auto) 2.3 Baso % (Auto) 0.3 Lymph # (Auto) 1.8 [place] # (Auto) 0.7 Eos # (Auto) 0.2 Baso # (Auto) 0.0 Abs Immat Gran (auto) 0.03 Absolute Neuts (auto) 4.3 Absolute Nucleated RBC 0.000 Nucleated RBC % (auto) 0.0 Anion Gap 12 Estim Creat Clear Calc 112.1 Estimated GFR > 60 Random Glucose 105 Calcium 9.4 Total Bilirubin 0.3 Direct Bilirubin 0.1 AST 19 ALT 28 Alkaline Phosphatase 54 Total Creatine Kinase 221 H Total Protein 7.7 Albumin 4.1 Lipase 25 Urine Color Yellow Urine Appearance Clear Urine pH 5.5 Ur Specific [place] 1.020 Urine Protein Negative Urine Glucose (UA) Negative Urine Ketones Negative Urine Blood Negative Urine Nitrite Negative Ur Leukocyte Esterase Negative Imaging Radiologist's Impressions: Impressions Abdomen/Pelvis CT 08/24/22 22:45 IMPRESSION: 1. Fluid-filled loops of small bowel in the right hemiabdomen are nonspecific and could be associated with gastroenteritis. No evidence of bowel obstruction. Normal appendix. 2. Diffuse urinary bladder wall thickening, recommend correlation with urinalysis. 3. Nonspecific [place] fatty haziness of the upper mesentery with scattered prominent mesenteric lymph nodes, a differential consideration includes mesenteric panniculitis. 4. Small hiatal hernia with equivocal circumferential wall thickening of the lower esophagus. Correlate clinically for reflux disease and esophagitis. 5. Hepatomegaly and hepatic steatosis. 6. Nonspecific incompletely characterized liver lesions, one demonstrating heterogeneous enhancement. Recommend further evaluation with a dynamic abdominal MRI with and without IV contrast. 7. Punctate nonobstructive right-sided renal calculus. 8. Predominantly streaky bibasilar airspace opacities with mild surrounding groundglass attenuation, favoring to represent subsegmental atelectasis. However, early infiltrate/aspiration are difficult to exclude in the appropriate clinical context. Assessment and Plan (1) Abdominal pain: Status: Acute (2) Acute mesenteric adenitis: Status: Acute (3) Gastroenteritis: Status: Acute Plan 46-year-old male past medical history of hypertension presents the hospital with complaints of abdominal pain # acute abdominal pain - possibly secondary gastroenteritis versus adenitis, acute appendicitis less likely - patient with persistent pain - will treat with IV antibiotics, IV fluids, general surgery evaluation # acute mesenteric adenitis - possibly secondary to gastroenteritis viral - GI panel pending - IV fluids, supportive measures # hypertension - stable - continue antihypertensives # history of alcohol abuse as documented in EMR - patient denies - will place on [facility] DVT prophylaxis: Ambulation Time Spent With Patient Time: Total time managing care of this patient today ____ minutes. Quality Stroke Does the patient have a stroke diagnosis?: No VTE Prior VTE?: No VTE Risk Level:: Medical - low VTE Device Contraindication: Treatment Not Indicated VTE Drug Contraindication: Treatment Not Indicated
[2022-08-25 07:38] LABS: MANUAL DIFF FLAG NO
[2022-08-25 07:43] LABS: Basophils Percent Auto 0.6 % (0-2); Eosinophils Absolute Auto 0.2 X10*3/uL (0.0-0.4); Hematocrit 40.5 % (42.0-52.0); Hemoglobin 13.8 g/dl (14.0-18.0); Imm Gran Abs Auto 0.02 X10*3/uL (0.00-0.03); Imm Gran Pct Auto 0.3 % (0.0-0.4); Lymphocytes Absolute Auto 1.5 X10*3/uL (1.2-4.9); Lymphocytes Percent Auto 22.7 % (20-40); Mean Corpuscular HGB Conc 34.1 g/dl (31.0-36.0); Mean Corpuscular Hemoglobin 30.9 pg (27.0-33.0); Mean Corpuscular Volume 90.6 fL (80.0-98.0); Mean Platelet Volume 9.3 fL (9.4-12.4); Monocytes Absolute Auto 0.6 X10*3/uL (0.1-1.2); Monocytes Percent Auto 9.1 % (2-11); Neutrophils Absolute Auto 4.3 x10*3/uL (2.0-8.3); Neutrophils Percent Auto 64.3 % (45-73); Platelet Count 250 X10*3/uL (160-400); Red Blood Count 4.47 X10*6/uL (4.60-5.80); Red Cell Distribution Width 12.1 % (11.0-16.0); White Blood Count 6.7 X10*3/uL (4.8-10.8)
[2022-08-25 07:52] LABS: Anion Gap 11 (12-20); Blood Urea Nitrogen 12 mg/dL (9-16); Calcium 8.8 mg/dL (8.4-10.2); Carbon Dioxide 28 mmol/L (22-29); Chloride 104 mmol/L (96-108); Creatinine Clr Calc Pharmacy 116.2; Estimated Glomerular Filt Rate > 60; Glucose Random 119 mg/dL (60-115); Sodium 139 mmol/L (135-145)
[2022-08-25 07:54] VITALS: BP 128/77; PULSE 68; RESP 18; TEMP 36.9; O2SAT 96
[2022-08-25] MEDS: 0.9 % Sodium Chloride Flush 3 ML SYRINGE IVFLUSH (07:57)
[2022-08-25] MEDS: Famotidine/PF 20 MG/2 ML VIAL IVPUSH ×2 (08:04→21:21)
--- NOTE | 2022-08-25 09:12 | PHA.MEDREC ---
Pharmacy Consult ? Medication Reconciliation Pharmacy has completed the medication reconciliation. Spoke to patient to confirm meds. Patient states they still take clobetasol scalp solution, but just ran out recently. Uses it as needed.
--- NOTE | 2022-08-25 10:05 | MHC.CM.PN ---
PT REPORTS HE LIVES ALONE WITH HIS CAT AND IS INDEPENDENT WITH CARE HE HAS NO HOME SERVICES OR DME HE DOES NOT HAVE A HCP, EDUCATION AND DOCUMENT PROVIDED HE IS AWARE CM CAN ASSIST ANYTIME DURING ADMISSION PCP MELISSA WHITAKER OBSERVATION NOTICE DELIVERED DCP: HOME NO SERVICES VIA SELF TRANSPORT
[2022-08-25 10:19] VITALS: BP 138/93; PULSE 68; RESP 18; TEMP 36.1
[2022-08-25 15:37] VITALS: BP 106/65; PULSE 79; RESP 18; TEMP 36.3; O2SAT 96
--- NOTE | 2022-08-25 16:23 | PM.CNGS ---
History of Present Illness Consult details Consult date: 08/25/22 Narrative: the patient is a 46-year-old male who presented to the emergency room with right lower quadrant pain a got worse within the last 24 hours. No unusual diet no unusual travel no trauma to the area. He came into the emergency room his blood work was pretty much unremarkable and a CT scan showed some small bowel loops distended and some mesenteric lymph nodes present. He denied any nausea vomiting any diarrhea constipation. His pain was moderately severe so was admitted for observation. Today he is feeling better and so his diet was advanced. Blood work still looked good. Review of Systems Review of Systems: Yes all other systems are reviewed and are negative PMFSH Past Medical History Medical History ETOH abuse HTN (hypertension) Surgical History Surgical History No pertinent past surgical history Social History Social History Household Members: None [facility] Do you presently have visiting nurse or other home services: No Alcohol intake: current Alcohol intake frequency: holidays/special occasions only Alcohol type: beer and hard liquor Patient Tobacco Use Status: Former Tobacco user Tobacco use type: Smokeless Tobacco e-Cigarette/Vaping Use: Former Use Second Hand Smoke Exposure: No service: No Current occupational status: employed Current occupational exposures/hazards: No Cognitive needs: No Hearing needs: No Vision needs: No Meds Allergies Allergy/AdvReac Type Severity Reaction Status Date / Time Azythromycin AdvReac Unknown diarrhea Uncoded 07/17/22 16:06 Active Medications: Current Medications Acetaminophen (Acetaminophen 325 Mg Tablet) 650 mg PO Q6H PRN PRN Reason: Pain, Mild (Pain Scale 1-3) Famotidine (Famotidine/Pf 20 Mg/2 Ml Vial) 20 mg IVPUSH BID [facility] Last Admin: 08/25/22 08:04 Dose: 20 mg Lactated Ringer's (Lr) 1,000 mls @ 125 mls/hr IVCONT .Q8H [facility] Last Admin: 08/25/22 16:08 Dose: 125 mls/hr Morphine Sulfate (Morphine Sulfate 4 Mg/Ml Cartridge) 4 mg IVPUSH Q4H PRN; Protocol PRN Reason: Pain, Severe (Pain Scale 7-10) Last Admin: 08/25/22 16:10 Dose: 4 mg Omeprazole (Omeprazole 20 Mg Capsule.Dr) 20 mg PO DAILY@629 [facility] Ondansetron HCl (Ondansetron Hcl 4 Mg/2 Ml Vial) 4 mg IVPUSH Q8H PRN PRN Reason: Nausea and Vomiting Sodium Chloride (0.9 % Sodium Chloride Flush 3 Ml Syringe) 3 ml IVFLUSH QSHIFT [facility] Last Admin: 08/25/22 15:46 Dose: Not Given Home Medications Medication Instructions Recorded Confirmed Last Taken Type clobetasol 0.05 % scalp solution 1 appl topical DAILY PRN psoriasis 08/25/22 08/25/22 Unknown History multivitamin 1 tab PO DAILY 08/25/22 08/25/22 08/24/22 History omeprazole 20 mg capsule,delayed 20 mg PO DAILY@30 08/25/22 08/25/22 08/24/22 History release Physical Exam Vital Signs: Vital Signs: Last Vital Signs Temp 97.3 F 08/25/22 15:37 Pulse 79 08/25/22 15:37 Resp 18 08/25/22 15:37 BP 106/65 08/25/22 15:37 Pulse Ox 96 08/25/22 15:37 O2 Del Method Room Air 08/25/22 15:37 BMI result Body Mass Index 23.8 Const: General: cooperative, healthy appearing and no acute distress HEENT: Head: Yes normal to inspection GI: Other: Abdomen is soft nondistended mild tenderness in the right upper to right lower quadrant no guarding no rebound no peritoneal signs. Active bowel sounds Results Labs 08/25/22 07:33 08/25/22 07:33 Labs: Abnormal lab results 08/24/22 08/24/22 08/25/22 Range/Units 20:13 20:13 07:33 RBC 4.43 L 4.47 L (4.60-5.80) X10*6/uL Hgb 13.9 L 13.8 L (14.0-18.0) g/dl Hct 40.0 L 40.5 L (42.0-52.0) % MPV 9.3 L 9.3 L (9.4-12.4) fL Anion Gap (12-20) Random Glucose (60-115) mg/dL Total Creatine Kinase 221 H (38-174) U/L 08/25/22 Range/Units 07:33 RBC (4.60-5.80) X10*6/uL Hgb (14.0-18.0) g/dl Hct (42.0-52.0) % MPV (9.4-12.4) fL Anion Gap 11 L (12-20) Random Glucose 119 H (60-115) mg/dL Total Creatine Kinase (38-174) U/L Short CBC 08/24/22 08/25/22 Range/Units 20:13 07:33 WBC 7.0 6.7 (4.8-10.8) X10*3/uL Hgb 13.9 L 13.8 L (14.0-18.0) g/dl Hct 40.0 L 40.5 L (42.0-52.0) % Plt Count 282 D 250 (160-400) X10*3/uL BMP 08/24/22 08/25/22 20:13 07:33 Sodium 138 139 Potassium 4.0 4.0 Chloride 103 104 Carbon Dioxide 27 28 BUN 16 12 Creatinine 0.85 0.82 Calcium 9.4 8.8 D Cardiac Enzymes 08/24/22 Range/Units 20:13 Total Creatine Kinase 221 H (38-174) U/L Liver Function 08/24/22 Range/Units 20:13 Total Bilirubin 0.3 (0.0-1.0) mg/dL Direct Bilirubin 0.1 (0.0-0.5) mg/dL AST 19 (5-37) U/L ALT 28 (0-40) U/L Alkaline Phosphatase 54 (39-117) U/L Albumin 4.1 (3.5-5.0) g/dL Urine 08/24/22 Range/Units 21:12 Urine Color Yellow Urine Appearance Clear Urine pH 5.5 (5.0-9.0) Ur Specific [place] 1.020 (1.005-1.025) Urine Protein Negative (Neg-Trace) mg/dL Urine Glucose (UA) Negative (Negative) mg/dL All other labs normal. Assessment and Plan (1) Abdominal pain: Status: Acute Plan 46-year-old male with right lower quadrant pain and CT scan showing probable mesenteric adenitis and some small bowel loop dilatation probably secondary to some viral infection. No evidence of appendicitis. Plan to increase his diet advance and most likely DC home. Would not do any to biotics but can treat with and states and see how he does with this. He can follow-up with surgery as an outpatient. Time Spent With Patient Time: Total time managing care of this patient today ____ minutes. Procedures Date of Service Date of Service: 08/25/22
[2022-08-25 19:24] VITALS: BP 110/62; PULSE 55; RESP 18; TEMP 36.7; O2SAT 96
[2022-08-26] MEDS: Lactated Ringers 1,000 ML 125 ML IVCONT ×2 (00:22→08:13)
[2022-08-26 03:52] VITALS: BP 125/67; PULSE 60; RESP 18; TEMP 36.4; O2SAT 97
[2022-08-26] MEDS: Omeprazole 20 MG CAPSULE.DR PO (06:07)
[2022-08-26 07:41] VITALS: BP 137/86; PULSE 66; RESP 18; TEMP 36.4; O2SAT 95
[2022-08-26] MEDS: Famotidine/PF 20 MG/2 ML VIAL IVPUSH (08:13)
[2022-08-26] MEDS: Morphine Sulfate 4 MG/ML CARTRIDGE IVPUSH (08:25)
--- NOTE | 2022-08-26 11:17 | P.DS_ITS ---
DS: Providers Provider Date of Service: 08/26/22 Date of admission: 08/25/22 02:21 Primary care physician: Sharan Omer PA-C Consults: 08/25/22 02:31 Consult to General Surgery Routine Consulting Provider: [facility] General Surgeons Reason for consultation: rlq pain Has provider been notified: Yes DS: Diagnosis Discharge Diagnosis (1) Abdominal pain: Status: Acute DS: Summary Hospital Course Hospital Course: Date of Service: 08/25/22 Chief Complaint: abd pain ?46-year-old male past medical history of hypertension, documented history of alcohol abuse although patient denies it to me, presents the hospital with complaints of? what initially started as abdominal pain and has now become back pain.? States that his pain started at work today, localized to the right lower quadrant, , eventually travel to his right lower back, is now localized to the back.? the pain is constant, severe, no alleviating factors but exacerbated by movement or hiccups,, cramping /sharp, Patient denies any fever, no chills, , denies any chest pain, no shortness of breath, no nausea or vomiting, no diarrhea constipation, no urinary symptoms and no lower extremity edema.? On arrival to the ED patient hemodynamically stable with no fever, all other vitals normal Labs are significant for WBC count of 7.0, hemoglobin of 13.9, hematocrit 40, labs otherwise unremarkable, no LFT elevations, UA negative, Abdominal pelvic CT shows fluid-filled loops of small bowel in the right hemiabdomen are nonspecific and can be associated with gastroenteritis, no evidence of bowel obstruction, normal appendix, nonspecific Susie fatty haziness of the upper mesentery with scattered prominent mesenteric lymph nodes nonspecific but can include? pannicolitis ?patient also has evidence of liver lesions recommending further evaluation with MRI ?and subsegmental atelectasis on lungs. ?case discussed with General surgery, does not feel that this is acute infection that needs surgical intervention but does recommend admission of patient to hospital an evaluation by General surgery in a.m. ?patient continues to have significant pain. hospital course: 46-year-old male past medical history of hypertension presents the hospital with complaints of abdominal pain #? acute abdominal pain, admitted to medical floor treated with IV fluids, IV analgesics likely symptoms related to viral enteritis, evaluated by General musa ofelia no evidence of acute appendicitis they recommended outpatient follow-up, diet was gradually advanced patient tolerating it fairly well with significant improvement in abdominal discomfort , recommend Tylenol for pain and bland diet, no antibiotics. #? acute mesenteric adenitis ? possibly secondary to gastroenteritis viral, abdominal pain improved #? history of alcohol abuse no withdrawal symptoms noted recommended complete abstinence from alcohol noted to have hepatomegaly. # incidental note of liver lesion, recommended outpatient dynamic MRI study with and without contrast, inform patient and about CT findings. Time Spent with Patient Time attestation: Total time managing care of this patient today ____ minutes. Discharge coordination time: Greater than 30 minutes Quality: Safe Use of Opioids Does Pt have an Active Cancer Diagnosis on the Problem List?: No Quality: Stroke Does the patient have a stroke diagnosis?: No Physical Exam Vital Signs: Vital Signs: Last Vital Signs Temp 97.5 F 08/26/22 07:41 Pulse 66 08/26/22 07:41 Resp 18 08/26/22 07:41 BP 137/86 08/26/22 07:41 Pulse Ox 95 08/26/22 07:41 O2 Del Method Room Air 08/26/22 07:41 BMI result Body Mass Index 23.8 Const: Other: General Awake alert x3 in no acute distress. Neck is supple no JVD. CVS regular rate rhythm, Respiratory lungs clear to auscultation, no respiratory distress, no wheeze, no rhonchi. Gastrointestinal abdomen soft, nontender, bowel sounds audible, no guarding , no rigidity. Extremities no edema. Neuro nonfocal , no tremors. Skin no rash psych appropriate affect Discharge Plan Discharge Anticipated Discharge Date/Time: 08/25/22 17:03 Patient Disposition: Home, Self-Care Discharge Diagnosis: acute abdominal pain Referrals: Sharan Omer PA-C [Primary Care Provider] - 1 Week Discharge Medications: Continued multivitamin Tablet 1 tab PO DAILY omeprazole 20 mg capsule,delayed release(DR/EC) 20 mg PO DAILY@0630 clobetasol 0.05 % solution 1 appl topical DAILY PRN (Reason: psoriasis) Rx Instructions: apply to scalp lisinopril 5 mg tablet 5 mg PO DAILY 30 Days Qty: 30 3RF Discharge Orders: Discharge Order (Routine); Ordered 08/26/22 Ordered By: Mark Menjivar Diet: bland diet Activity on Discharge: As tolerated Stand Alone Forms: Patient Portal Discharge page Care Plan Goals: likely viral enteritis improving follow bland diet, rice pudding ,toast ,banana, for next 1 or 2 days, return to check with worsening abdominal discomfort. take Tylenol for pain strongly recommend to abstain from alcohol Health Concerns: take all home medications as before Plan of Treatment: follow-up with primary care physician call for appointment. recommend dynamic MRI with and without contrast for further evaluation of liver lesion Assessment: as above
--- NOTE | 2022-08-26 11:39 | MHC.CM.PN ---
PT WILL DC HOME TODAY WITH NO SERVICES PT TO ARRANGE TRANSPORT
--- NOTE | 2022-08-26 12:03 | PC.NURSE ---
pt tolerating po well. No n/v
[2022-08-27 22:13] LABS: A. Phagocytphilium DNA,RT-PCR NOT DETECTED (NOT DETECTED); Babesia Microti DNA, RT-PCR NOT DETECTED (NOT DETECTED); Borrelia Miyamotoi,DNA RT-PCR NOT DETECTED (NOT DETECTED); E.Chaffeensis DNA RT-PCR NOT DETECTED (NOT DETECTED); Lyme(Borrelia ssp)DNA RT-PCR NOT DETECTED (NOT DETECTED)
== END 2022-08-26 11:58 | disposition home or self-care (01) ==
LOC: HO.ED 08-25 02:34 → HO.EDOVER 08-25 02:34 → HO.S3 08-25 07:47
PROVIDERS: Nurse Practitioner Family; Admitting Provider Internal Medicine; Emergency Provider Emergency Medicine Emergency Medical Services; PCP Physician Assistant; Visit Provider Hospitalist
DX: R10.31 Right lower quadrant pain (principal); I88.0 Nonspecific mesenteric lymphadenitis; K52.9 Noninfective gastroenteritis and colitis, unspecified; I10 Essential (primary) hypertension; M54.50 Low back pain, unspecified; K76.9 Liver disease, unspecified
CPT/HCPCS: 36415; 74177; 80048; 80076; 81003; 82550; 83690; 85025; 87798; 87801; 96361; 96374; 96375; 96376; 99221; 99284; J1885; J2270; Q9967

== ENCOUNTER 2022-09-19 08:22 | Outpatient (AMB) | payer OTHER, SELFPAY ==
--- NOTE | 2022-09-19 08:28 | A.OFFPC_ITS ---
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 Discharge medications were reviewed and reconciled by me. He was observed at [facility] from 08/25-08/26 due to significant abdominal pain that was localized to the right lower quadrant radiating to the right lower back as noted to be constant without any alleviating factors but was exacerbated by movement or hiccups. On arrival, vitals were stable without any leukocytosis. No significant anemia. LFTs were within normal limit. Abdominal pelvis CT showed fluid-filled loops of small bowel or in the right hemiabdomen which were nonspecific possibly related to gastroenteritis but no evidence of bowel obstruction or appendicitis. The liver was noted to have a nonspecific Susie fatty haziness of the upper mesentery with scattered prominent mesenteric lymph nodes top of the ventral to include mesenteric panniculitis. The case was discussed with general surgery who did not feel there is an acute infection that needed surgical intervention but did recommend admission. The patient was admitted to hospitalist service and treated conservatively with IV fluids and analgesics with suspected viral enteritis. General surgery did follow the patient and again did not feel there was any evidence of acute appendicitis and recommended outpatient treatment. Diet was gradually advanced with good tolerance. He was monitored for alcohol withdrawal throughout admission without any withdrawal symptoms noted. The acute mesenteric adenitis that was seen on CT with likely related to gastroenteritis and abdominal pain did greatly improve and patient was discharged home. Given the incidentally noted liver lesions, outpatient dynamic MRI study was recommended. Today, the patient states he is feeling better but states he is only here to discuss diffuse myalgias and foot pain. He does not wish to discuss his hospital discharge. I did review the tick panel including Anaplasma, babesia, erlichia, and Borrelia which were all negative with the patient. I discussed with the patient that the purpose of this visit is for hospital discharge follow-up but again patient does not wish to discuss this. I advised the patien t that he will need to follow up with his PCP for further workup on the myalgias and foot pain. [facility], [facility] Medical History ETOH abuse HTN (hypertension) Surgical History No pertinent past surgical history Social History Household Members: None [facility] Do you presently have visiting nurse or other home services: No Alcohol intake: current Alcohol intake frequency: holidays/special occasions only Alcohol type: beer and hard liquor Patient Tobacco Use Status: Former Tobacco user Tobacco use type: Smokeless Tobacco e-Cigarette/Vaping Use: Former Use Second Hand Smoke Exposure: No service: No Current occupational status: employed Current occupational exposures/hazards: No Cognitive needs: No Hearing needs: No Vision needs: No Questionnaire PHQ-9 Over the last 2 weeks, how often have you been bothered by any of the following problems? 1. Little interest or pleasure in doing things: not at all 2. Feeling down, depressed, or hopeless: not at all 3. Trouble falling or staying asleep, or sleeping too much: not at all 4. Feeling tired or having little energy: not at all 5. Poor appetite or overeating: not at all 6. Feeling bad about yourself - or that you are a failure or have let yourself or your family down: not at all 7. Trouble concentrating on things, such as reading the newspaper or watching television: not at all 8. Moving or speaking so slowly that other people could have noticed. Or the opposite - being so fidgety or restless that you have been moving around a lot more than usual: not at all 9. Thoughts that you would be better off or of hurting yourself in some way: not at all Total score: 0 Depression Screening Interpretation: Negative 62936 - PHQ-9 Billing: Yes Source: Developed by Drs. Miguel Angel Driver, Danilo Ulloa and colleagues, with an educational ciro from [employer]. Thrive Questionnaire Date Thrive assessed: 09/19/22 I am a: Patient What is your living situation today?: I have a steady place to live Within the past 12 months, did the food you bought not last and you didn't have the money to get more?: Sometimes True Within the past 12 months, did you worry whether your food would run out before you got money to buy more?: Sometimes True Do you have trouble paying for medicines?: No Do you have trouble getting transportation to medical appointments?: No Do you have trouble paying your heating and electricity bill?: No Do you have trouble taking care of your child, family member or friend?: No Do you have trouble with day-to-day activities such as bathing, preparing meals, shopping, managing finances, etc.?: No Are you currently unemployed and looking for a job?: No Are you interested in more education?: No Please select the resources that you would like help with: None Currently or been in a relationship where the following occur: no concerns reported AUDIT C Alcohol Use Questionnaire (AUDIT-C) 1. How often do you have a drink containing alcohol?: Never Total Score: 0 JAMEY-7 AMB Questionnaire JAMEY-7 Date JAMEY - 7 assessed: 09/19/22 Feeling nervous, anxious, or on edge: 0 = Not at all Not being able to stop or control worryin = Not at all Worrying too much about different things: 0 = Not at all Trouble relaxin = Not at all Being so restless that it is hard to sit still: 0 = Not at all Becoming easily annoyed or irritable: 0 = Not at all Feeling afraid as if something awful might happen: 0 = Not at all Total JAMEY-7 score (0-4 normal; 5-9 mild; 10-14 moderate; 15-21 severe): 0 Source: Developed by Racheal Solis Kurt Kroenke and colleagues, with an educational ciro from [employer]. JAMEY-7 Assessment Billing JAMEY-7 Assessment Tool: JAMEY-7 Assessment 85887 Physical exam (Primary Care) Vital Signs: Last Vital Signs Pulse 93 09/19/22 08:29 BP 112/78 09/19/22 08:29 Pulse Ox 97 09/19/22 08:29 Oxygen Delivery Method Room Air 09/19/22 08:29 BMI result Body Mass Index 24.7 Tobacco/Smoking Status: Tobacco use Status Tobacco use date assessed 09/19/22 09/19/22 08:33 Patient Tobacco Use Status Former Tobacco user 09/19/22 08:33 Tobacco use type Smokeless Tobacco 09/19/22 08:33 e-Cigarette/Vaping Use Former Use 09/19/22 08:33 PHQ-9: PHQ-9 Score PHQ-9: Total score 0 09/19/22 08:44 Depression Screening Interpretation: Negative Thrive Assessment: Date of Thrive Assessment Date Thrive assessed 09/19/22 09/19/22 08:33 Currently or been in a relationship where the following occur: no concerns reported Assessment and Plan Assessment & Plan (1) Gastroenteritis: Code(s): K52.9 - Noninfective gastroenteritis and colitis, unspecified Plan: Resolved. Pt does with not wish to discuss hospital discharge which was the purpose of visit. I have reviewed hospital H&P, hospital discharge summary, CBC, BMP, Hepatic panel, Ct abd/pelvis, general surgery consult note. (2) Tick bite: Code(s): W57.XXXA - Bitten or stung by nonvenomous insect and other nonvenomous arthropods, initial encounter Plan: Reviewed tick panel with patient which is negative. (3) Acute mesenteric adenitis: Code(s): I88.0 - Nonspecific mesenteric lymphadenitis Plan: R/t gastroenteritis. Abd pain resolved. (4) Myalgia: Code(s): M79.10 - Myalgia, unspecified site Plan: Discussed with patient that he can schedule appt with his PCP to discuss diffuse myaglias. Reviewed renal function and lytes which are normal. Hematology studies unremarkable. Tick panel negative. (5) Hepatomegaly: Code(s): R16.0 - Hepatomegaly, not elsewhere classified Plan: Incidentally found on abd/pelvis CT. LFTs normal. Reports no ongoing etoh use. Does not wish to discuss discharge. Would recommend MRI liver and low fat diet. Follow up with PCP. (6) Liver lesion: Code(s): K76.9 - Liver disease, unspecified Plan: Incidentally found on abd/pelvis CT. LFTs normal. Reports no ongoing etoh use. Does not wish to discuss discharge. Would recommend MRI liver and low fat diet. Follow up with PCP. Medications: Discontinued omeprazole 20 mg PO DAILY 90 caps 1RF clobetasol 0.05% Pt reports no longer using/taking this medication; RN did not feel comfortable submitting cancelation to [facility] 1 appl topical DAILY 30 days 50 mL 1RF L20.9 - Atopic dermatitis, unspecified Coding Level of Care Code Est Pt Level 3 (54999) Diagnoses Gastroenteritis K52.9 Tick bite W57.XXXA Acute mesenteric adenitis I88.0 Myalgia M79.10 Hepatomegaly R16.0 Liver lesion K76.9 Additional Codes JAMEY-7 Assessment Billing - JAMEY-7 Assessment Tool: JAMEY-7 Assessment 70212 ([id number])
[2022-09-19 08:29] VITALS: BP 112/78; PULSE 93; O2SAT 97; BMI 24.7
== END 2022-09-19 08:47 | disposition home or self-care (01) ==
PROVIDERS: PCP Physician Assistant; Visit Provider Physician Assistant
DX: K52.9 Noninfective gastroenteritis and colitis, unspecified (principal); W57.XXXA Bitten or stung by nonvenomous insect and other nonvenomous arthropods, initial encounter; I88.0 Nonspecific mesenteric lymphadenitis; M79.10 Myalgia, unspecified site; R16.0 Hepatomegaly, not elsewhere classified; K76.9 Liver disease, unspecified
CPT/HCPCS: 99213

== ENCOUNTER 2022-10-31 15:13 | Outpatient (AMB) | payer OTHER, SELFPAY ==
[2022-10-31 15:37] VITALS: BP 152/98; PULSE 105; O2SAT 98; BMI 25.0
--- NOTE | 2022-10-31 15:37 | MHC.PC.OV ---
Vital Signs 10/31/22 15:37 10/31/22 16:14 Height 5 ft 10 in Weight 174 lb 6 oz BMI 25.0 BP 152/98 H 138/80 Blood Pressure Location Lt brachial Position Sitting Pulse 105 H Pulse Source Pulse Oximeter Pulse Oximetry (%) 98 Oxygen Delivery Method Room Air Intake Visit Reasons: f/u hTN Intake Note: Patient is here to follow up on HTN. Family Centered Specialist Required: No Accompanied by: Self / Same As Patient Allergies Azythromycin Adverse Reaction (Unknown, Uncoded 10/31/22 15:59) diarrhea Medication List - Last Reconciled 10/31/22 by Sharan Omer PA-C clobetasol 0.05% 1 appl topical DAILY lisinopril 5 mg PO DAILY 30 days multivitamin 1 tab PO DAILY omeprazole 20 mg PO DAILY@0630 Tobacco use date assessed: 09/19/22 Dental Screening Dental Screen Date: 10/31/22 Did you have a dental visit in the last 12 months?: Yes Did you have a dental problem in the last 6 months where you did not have access to dental care?: No Was dental information given to patient?: Patient has dentist HPI f/u hTN HPI Details Patient is a 47-year-old male here today for a f/u visit..? Patient has a past medical history significant for alcohol use disorder, diverticulitis, HTN. .. Concern--> recently admitted to [facility] for acute abdominal pain and generally feeling unwell. CT of abdomen showing mesenteric adenitis and was thought to viral gastroenteritis. Also was incidentally found to have a liver lesion and MRI of abdomen was recommended. Does have a history of alcohol use disorder though has been sober now over the last 4 months. Liver enzymes were stable. He also does report having some muscle aches in his lower and upper extremities. He was tested tick-borne disease as he did report a tick bite though testing was negative. He did have elevated CPK thus will trend .. HTN:? Patient's blood pressure today in office elevated. He reports he has not been taking his blood pressure medication over the last week..? He is asymptomatic without any dizziness or fatigue.? He has not been regularly checking his blood pressure at home over the last few weeks. Again he is stop drinking and feels less anxious.? Will decrease his dose of lisinopril. .. Alcohol use disorder:? (in remission)- Has been 4 months without drinking panic disorder :? Patient's anxiety has been much better since he has? stopped drinking alcohol [facility] Medical History (Updated 11/01/22 @ 07:31 by Sharan Omer PA-C) ETOH abuse HTN (hypertension) Tick bite Surgical History No pertinent past surgical history Social History Household Members: None Housing: Condominium Do you presently have visiting nurse or other home services: No Alcohol intake: current Alcohol intake frequency: holidays/special occasions only Alcohol type: beer and hard liquor Patient Tobacco Use Status: Former Tobacco user Tobacco use type: Smokeless Tobacco e-Cigarette/Vaping Use: Former Use Second Hand Smoke Exposure: No service: No Current occupational status: employed Current occupational exposures/hazards: No Cognitive needs: No Hearing needs: No Vision needs: No Questionnaire Thrive Questionnaire Date Thrive assessed: 09/19/22 JAMEY-7 AMB Questionnaire JAMEY-7 Date JAMEY - 7 assessed: 09/19/22 Source: Developed by Drs. Miguel Angel Driver, Racheal Smith, Danilo Parks and colleagues, with an educational ciro from [employer]. Review of Systems Const Denies headache(s) Eyes Denies loss of vision ENT Denies vertigo, Denies dizziness, Denies headache(s) and Denies sore throat Card Denies chest pain, Denies leg edema and Denies lightheadedness Resp Denies cough, Denies hemoptysis and Denies wheezing GI Denies abdominal pain, Denies melena, Denies constipation, Denies diarrhea and Denies vomiting Denies dysuria, Denies urinary frequency and Denies urinary urgency Musc Denies arthralgias, Denies joint swelling, Denies numbness and Denies tingling Neuro Denies Abnormal speech present, Denies behavioral changes, Denies vertigo, Denies dizziness, Denies headache(s), Denies loss of vision, Denies memory loss, Denies numbness and Denies tingling Psych Denies anxiety, Denies behavioral changes, Denies depression, Denies memory loss and Denies panic attacks Efraín/Lymph Denies easy bleeding and Denies easy bruising Aller/Immun Denies wheezing Physical exam (Primary Care) Vital Signs: Last Vital Signs Pulse 105 H 10/31/22 15:37 BP 138/80 10/31/22 16:14 Pulse Ox 98 10/31/22 15:37 Oxygen Delivery Method Room Air 10/31/22 15:37 BMI result Body Mass Index 25.0 Tobacco/Smoking Status: Tobacco use Status Tobacco use date assessed 09/19/22 10/31/22 15:38 Patient Tobacco Use Status Former Tobacco user 10/31/22 15:38 Tobacco use type Smokeless Tobacco 10/31/22 15:38 e-Cigarette/Vaping Use Former Use 10/31/22 15:38 Thrive Assessment: Date of Thrive Assessment Date Thrive assessed 09/19/22 10/31/22 15:38 Const General: healthy appearing, no acute distress, alert and awake Nutritional Appearance: well nourished Orientation/consciousness: oriented to person, oriented to place and oriented to time HENMT Ears: TM's normal bilaterally General nose exam: Normal nasal mucous membranes and turbinates present Eyes Conjunctivae: conjunctivae normal Sclerae: sclerae normal Pupils: Equal, round and reactive pupils present Neck Neck: Yes no lymphadenopathy and Yes no JVD Thyroid: Thyroid normal Carotids: no bruits Resp Effort & Inspection: normal respiratory effort and not tachypneic Auscultation: no crackles, no rales, no rhonchi and no wheezes Cardio Rate: regular rate Rhythm: regular rhythm Heart sounds: no murmurs and normal S1 and S2 GI Palpation (GI): Soft to palpation, nontender, no hepatomegaly and no splenomegaly Auscultation: normal bowel sounds Skin General skin exam: no rashes or lesions noted and dry skin Neuro General: oriented to person, oriented to place and oriented to time Cranial nerves: Yes Equal, round and reactive pupils present Speech: No Abnormal speech present Gait exam (Neuro): Normal gait present Motor exam (neuro): no tremor noted Extrem Right upper extremity: full ROM Left upper extremity: full ROM Right lower extremity: full ROM; no edema Left lower extremity: full ROM; no edema Psych Mental Status: mental status grossly normal Speech and movement: Normal speech and movement present Affect: normal affect Attitude: cooperative Thought process: Normal thought process present Assessment and Plan Assessment & Plan (1) HTN (hypertension): Code(s): I10 - Essential (primary) hypertension Qualifiers: Hypertension type: primary hypertension Qualified Code(s): I10 - Essential (primary) hypertension Plan: Patient's blood pressure slightly elevated today in office. Advised to restart taking his blood pressure medication with goal blood pressure be below 140/90 (2) Atelectasis: Code(s): J98.11 - Atelectasis Plan: Was found to have slight atelectasis on CT. Will recheck a chest x-ray. Otherwise denies any pulmonary symptoms. (3) Liver lesion: Code(s): K76.9 - Liver disease, unspecified Plan: Noted to have a liver lesion on CT abdomen. In the setting of historyof alcohol use disorder -> Will follow with abdominal MRI with liver protocol. (4) Hepatomegaly: Code(s): R16.0 - Hepatomegaly, not elsewhere classified Plan: Noted to have hepatomegaly likely secondary to his history of alcohol use disorder. Liver enzymes are stable. (5) Alcohol use disorder: Plan: Alcohol use disorder now in remission. Has been sober now for over the last 4 months. Does report still having cravings though has been able to alcohol intake. (6) Myalgia: Code(s): M79.10 - Myalgia, unspecified site (7) Acute mesenteric adenitis: Code(s): I88.0 - Nonspecific mesenteric lymphadenitis Plan: As per HPI patient was found to have an acute mesenteric adenitis in setting her abdominal pain. Presumed diagnosis was gastroenteritis due to viral etiology. Currently Doing much better and no abdominal pain and bowel movements are normal. Medications: Discontinued omeprazole 20 mg PO DAILY 90 caps 1RF clobetasol 0.05% Pt reports no longer using/taking this medication; RN did not feel comfortable submitting cancelation to [facility] 1 appl topical DAILY 30 days 50 mL 1RF L20.9 - Atopic dermatitis, unspecified Coding Level of Care Code Est Pt Level 4 (21686) Diagnoses HTN (hypertension) I10 Hypertension type: primary hypertension Atelectasis J98.11 Liver lesion K76.9 Hepatomegaly R16.0 Alcohol use disorder F10.90 Myalgia M79.10 Acute mesenteric adenitis I88.0
[2022-10-31 16:14] VITALS: BP 138/80
== END 2022-10-31 16:22 | disposition home or self-care (01) ==
PROVIDERS: PCP Physician Assistant; Visit Provider Physician Assistant
DX: I10 Essential (primary) hypertension (principal); J98.11 Atelectasis; K76.9 Liver disease, unspecified; R16.0 Hepatomegaly, not elsewhere classified; F10.90 Alcohol use, unspecified, uncomplicated; M79.10 Myalgia, unspecified site; I88.0 Nonspecific mesenteric lymphadenitis
CPT/HCPCS: 99214

== ENCOUNTER 2022-11-20 10:00 | Outpatient (AMB) | payer OTHER, SELFPAY ==
--- NOTE | 2022-11-20 10:00 | A.OFFPC_ITS ---
Intake Visit Reasons: Unable to hear out of left ear Intake Note: Telehealth call with patient for unable to hear out of left ear since Saturday. 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 Accompanied by: Self / Same As Patient Allergies Azythromycin Adverse Reaction (Unknown, Uncoded 11/20/22 10:04) diarrhea Medication List - Last Reconciled 11/20/22 by Sharan Omer PA-C clobetasol 0.05% 1 appl topical DAILY lisinopril 5 mg PO DAILY 30 days multivitamin 1 tab PO DAILY omeprazole 20 mg PO DAILY@0630 Tobacco use date assessed: 09/19/22 Dental Screening Dental Screen Date: 11/20/22 Did you have a dental visit in the last 12 months?: No Did you have a dental problem in the last 6 months where you did not have access to dental care?: No Was dental information given to patient?: Yes HPI Unable to hear out of left ear HPI Details Patient is a 47-year-old male being evaluated today via telephone. [facility] Medical History Tick bite HTN (hypertension) ETOH abuse Surgical History No pertinent past surgical history Social History Household Members: None Housing: Condominium Do you presently have visiting nurse or other home services: No Alcohol intake: current Alcohol intake frequency: holidays/special occasions on ly Alcohol type: beer and hard liquor Patient Tobacco Use Status: Former Tobacco user Tobacco use type: Smokeless Tobacco e-Cigarette/Vaping Use: Former Use Second Hand Smoke Exposure: No service: No Current occupational status: employed Current occupational exposures/hazards: No Cognitive needs: No Hearing needs: No Vision needs: No Questionnaire Thrive Questionnaire Date Thrive assessed: 09/19/22 JAMEY-7 AMB Questionnaire JAMEY-7 Date JAMEY - 7 assessed: 09/19/22 Source: Developed by Drs. Miguel Angel Driver, Racheal Smith, Danilo Parks and colleagues, with an educational ciro from [employer]. Review of Systems Const Denies headache(s) Eyes Denies loss of vision ENT Details: LEFT EAR DECREASED HEARING AND SENSATION OF CONGESTION Denies vertigo, Denies dizziness, Denies headache(s) and Denies sore throat Card Denies chest pain, Denies leg edema and Denies lightheadedness Resp Denies cough, Denies hemoptysis and Denies wheezing GI Denies abdominal pain, Denies melena, Denies constipation, Denies diarrhea and Denies vomiting Denies dysuria, Denies urinary frequency and Denies urinary urgency Musc Denies arthralgias, Denies joint swelling, Denies numbness and Denies tingling Neuro Denies behavioral changes, Denies vertigo, Denies dizziness, Denies headache(s), Denies loss of vision, Denies memory loss, Denies numbness and Denies tingling Psych Denies anxiety, Denies behavioral changes, Denies depression, Denies memory loss and Denies panic attacks Efraín/Lymph Denies easy bleeding and Denies easy bruising Aller/Immun Denies wheezing Physical exam (Primary Care) Tobacco/Smoking Status: Tobacco use Status Tobacco use date assessed 09/19/22 10/31/22 15:38 Patient Tobacco Use Status Former Tobacco user 10/31/22 15:38 Tobacco use type Smokeless Tobacco 10/31/22 15:38 e-Cigarette/Vaping Use Former Use 10/31/22 15:38 Thrive Assessment: Date of Thrive Assessment Date Thrive assessed 09/19/22 10/31/22 15:38 Telehealth Telehealth Location of provider rendering services: practice address Location of patient: other (Work) Patient Identification confirmed using: Name, : Yes Telehealth method: voice only Patient verbally consented to treatment: Yes Patient verbally consented to billing insurance company: Yes Patient informed of any privacy concerns related to visit: Yes Minutes spent on Phone/Video with Pt.: 10 Assessment and Plan Assessment & Plan (1) Otitis externa: Code(s): H60.90 - Unspecified otitis externa, unspecified ear Qualifiers: Otitis externa type: diffuse Chronicity: acute Laterality: left Qualified Code(s): H60.312 - Diffuse otitis externa, left ear Plan: Patient's signs and symptoms concerning for to discuss sternal. Was given ear drops and prednisone though feels he continues to loss of hearing left ear. Likely needs to be visualized and perhaps lavaged. Will try to have patient in tomorrow for evaluation and person. Coding Level of Care Code Est Pt Level 3 (75529) Diagnoses Acute diffuse otitis externa of left ear H60.312 Otitis externa type: diffuse Chronicity: acute Laterality: left
== END 2022-11-20 10:42 | disposition home or self-care (01) ==
LOC: HO.HMGH 10:00
PROVIDERS: PCP Physician Assistant; Visit Provider Physician Assistant
DX: H60.312 Diffuse otitis externa, left ear (principal)
CPT/HCPCS: 99213

== ENCOUNTER 2022-11-21 15:59 | Outpatient (AMB) | payer OTHER, SELFPAY ==
--- NOTE | 2022-11-21 16:01 | A.OFFPC_ITS ---
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 He has been having left year congestion and decreased hearing over the last 4 days. Was seen at urgent care was told he may have an infection was given topical antibiotics. Currently reports he continues to feel left ear congestion and decreased hearing. He denies much pain to his ear though does report often being itchy over bilateral ears. [facility] Medical History Tick bite HTN (hypertension) ETOH abuse Surgical History No pertinent past surgical history Social History Household Members: None Housing: Condominium Do you presently have visiting nurse or other home services: No Alcohol intake: current Alcohol intake frequency: holidays/special occasions only Alcohol type: beer and hard liquor Patient Tobacco Use Status: Former Tobacco user Tobacco use type: Smokeless Tobacco e-Cigarette/Vaping Use: Former Use Second Hand Smoke Exposure: No service: No Current occupational status: employed Current occupational exposures/hazards: No Cognitive needs: No Hearing needs: No Vision needs: No Questionnaire Thrive Questionnaire Date Thrive assessed: 09/19/22 JAMEY-7 AMB Questionnaire JAMEY-7 Date JAMEY - 7 assessed: 09/19/22 Source: Developed by Drs. Miguel Angel Driver, Racheal Smith, Danilo Parks and colleagues, with an educational ciro from [employer]. Review of Systems Const Denies headache(s) Eyes Denies loss of vision ENT Denies vertigo, Denies dizziness, Denies headache(s) and Denies sore throat Card Denies chest pain, Denies leg edema and Denies lightheadedness Resp Denies cough, Denies hemoptysis and Denies wheezing GI Denies abdominal pain, Denies melena, Denies constipation, Denies diarrhea and Denies vomiting Denies dysuria, Denies urinary frequency and Denies urinary urgency Musc Denies arthralgias, Denies joint swelling, Denies numbness and Denies tingling Neuro Denies Abnormal speech present, Denies behavioral changes, Denies vertigo, Denies dizziness, Denies headache(s), Denies loss of vision, Denies memory loss, Denies numbness and Denies tingling Psych Denies anxiety, Denies behavioral changes, Denies depression, Denies memory loss and Denies panic attacks Efraín/Lymph Denies easy bleeding and Denies easy bruising Aller/Immun Denies wheezing Physical exam (Primary Care) Vital Signs: Last Vital Signs Pulse 102 H 11/21/22 16:13 BP 110/72 11/21/22 16:13 Pulse Ox 96 11/21/22 16:13 Oxygen Delivery Method Room Air 11/21/22 16:13 BMI result Body Mass Index 24.7 Tobacco/Smoking Status: Tobacco use Status Tobacco use date assessed 09/19/22 11/21/22 16:03 Patient Tobacco Use Status Former Tobacco user 11/21/22 16:03 Tobacco use type Smokeless Tobacco 11/21/22 16:03 e-Cigarette/Vaping Use Former Use 11/21/22 16:03 Thrive Assessment: Date of Thrive Assessment Date Thrive assessed 09/19/22 11/21/22 16:03 Const General: healthy appearing, no acute distress, alert and awake Nutritional Appearance: well nourished Orientation/consciousness: oriented to person, oriented to place and oriented to time HENMT Other: LEFT EAR: EXTERNAL CANAL WITH MODERATE CERUMEN, NOTED TMS SLIGHTLY BULGING AND NOTED TO PANEL SCLEROSIS. NO MAJOR ERYTHEMA OR DRAINAGE NOTED General nose exam: Normal nasal mucous membranes and turbinates present Eyes Conjunctivae: conjunctivae normal Sclerae: sclerae normal Pupils: Equal, round and reactive pupils present Neck Neck: Yes no lymphadenopathy and Yes no JVD Thyroid: Thyroid normal Carotids: no bruits Resp Effort & Inspection: normal respiratory effort and not tachypneic Auscultation: no crackles, no rales, no rhonchi and no wheezes Cardio Rate: regular rate Rhythm: regular rhythm Heart sounds: no murmurs and normal S1 and S2 GI Palpation (GI): Soft to palpation, nontender, no hepatomegaly and no splenomegaly Auscultation: normal bowel sounds Skin General skin exam: no rashes or lesions noted and dry skin Neuro General: oriented to person, oriented to place and oriented to time Cranial nerves: Yes Equal, round and reactive pupils present Speech: No Abnormal speech present Gait exam (Neuro): Normal gait present Motor exam (neuro): no tremor noted Extrem Right upper extremity: full ROM Left upper extremity: full ROM Right lower extremity: full ROM; no edema Left lower extremity: full ROM; no edema Psych Mental Status: mental status grossly normal Speech and movement: Normal speech and movement present Affect: normal affect Attitude: cooperative Thought process: Normal thought process present Office Procedures Office Procedure Office Procedure Documentation Office Procedure Documentation: USING WARM WATER AND A SYRINGE FLUSHED LEFT EAR AND REMOVED MINIMAL AMOUNT CERUMEN AND DRIED BLOOD. PATIENT TOLERATED PROCEDURE WELL. Assessment and Plan Assessment & Plan (1) Otitis media: Code(s): H66.90 - Otitis media, unspecified, unspecified ear Qualifiers: Chronicity: acute Laterality: left Otitis media type: serous Recurrence: non-recurrent Qualified Code(s): H65.02 - Acute serous otitis media, left ear Plan: Ear lavage done today in office. Did have small amount of cerumen dislodged. Reports hearing better with less here congestion. Will send 5 days worth of antibiotic for presumed otitis media. Medications: New amoxicillin 500 mg PO Q8H 5 days 15 caps 0RF H66.90 - Otitis media, unspecif ied, unspecified ear Coding Level of Care Code Est Pt Level 3 (02672) Diagnoses Non-recurrent acute serous otitis media of left ear H65.02 Chronicity: acute Laterality: left Otitis media type: serous Recurrence: non-recurrent
[2022-11-21 16:13] VITALS: BP 110/72; PULSE 102; O2SAT 96; BMI 24.7
== END 2022-11-21 16:49 | disposition home or self-care (01) ==
PROVIDERS: PCP Physician Assistant; Visit Provider Physician Assistant
DX: H65.02 Acute serous otitis media, left ear (principal)
CPT/HCPCS: 99213

== ENCOUNTER 2022-12-12 15:12 | Outpatient (AMB) | payer OTHER, SELFPAY ==
[2022-12-12 15:37] VITALS: BP 100/62; PULSE 105; RESP 16; O2SAT 97; BMI 24.4
--- NOTE | 2022-12-12 15:37 | MHC.PC.OV ---
Vital Signs 12/12/22 15:37 Height 5 ft 10 in Weight 170 lb BMI 24.4 BP 100/62 Blood Pressure Location Lt brachial Position Sitting Respiration 16 Pulse 105 H Pulse Source Pulse Oximeter Pulse Oximetry (%) 97 Oxygen Delivery Method Room Air Intake Visit Reasons: f/u liver MRI- HTN Adoption Services Manager Required: No Accompanied by: Self / Same As Patient Allergies Azythromycin Adverse Reaction (Unknown, Uncoded 12/12/22 15:43) diarrhea Tobacco use date assessed: 09/19/22 Dental Screening Dental Screen Date: 12/12/22 Did you have a dental visit in the last 12 months?: No Did you have a dental problem in the last 6 months where you did not have access to dental care?: No Was dental information given to patient?: Yes (Pt has not seen a dentist for more than 10 years.) HPI f/u liver MRI- HTN HPI Details Patient is a 47-year-old male here today for a f/u visit..? Patient has a past medical history significant for alcohol use disorder, diverticulitis, HTN. .. Liver lesion: . CT of abdomen showing mesenteric adenitis and was thought to viral gastroenteritis. Also was incidentally found to have a liver lesion and MRI of abdomen was recommended. Does have a history of alcohol use disorder though has been sober now over the last 6 months. Liver enzymes were stable. .. Diverticulitis: Has a history of diverticulitis and recently having some episodes of diarrhea and lower quadrant abdominal pain. Denies any fevers or chills. .. HTN:? Patient's blood pressure today in office slightly low. Continues lisinopril 5mg. He reports checking his blood pressure and reports high readings. He reports he has not been taking his blood pressure medication over the last week..? He is asymptomatic without any dizziness or fatigue.? He has not been regularly checking his blood pressure at home over the last few weeks. .. Alcohol use disorder:? (in remission)- Has been 6 months without drinking panic disorder :? Patient's anxiety has been much better since he has? stopped drinking alcohol Laboratory Tests 04/02/21 08/24/22 08/25/22 13:36 20:13 07:33 RBC 4.08 L 4.47 L Hgb 14.3 13.8 L Hct 40.1 L Creatinine 0.94 Random Glucose 144 H AST 19 ALT 28 Total Creatine Kin ase 221 H PFSH Medical History Tick bite HTN (hypertension) ETOH abuse Surgical History No pertinent past surgical history Social History Household Members: None [facility] Do you presently have visiting nurse or other home services: No Alcohol intake: current Alcohol intake frequency: holidays/special occasions only Alcohol type: beer and hard liquor Patient Tobacco Use Status: Former Tobacco user Tobacco use type: Smokeless Tobacco e-Cigarette/Vaping Use: Former Use Second Hand Smoke Exposure: No service: No Current occupational status: employed Current occupational exposures/hazards: No Cognitive needs: No Hearing needs: No Vision needs: No Questionnaire Thrive Questionnaire Date Thrive assessed: 09/19/22 JAMEY-7 AMB Questionnaire JAMEY-7 Date JAMEY - 7 assessed: 09/19/22 Source: Developed by Drs. Miguel Angel Driver, Racheal Smith, Danilo Parks and colleagues, with an educational ciro from [employer]. Review of Systems Const Denies headache(s) Eyes Denies loss of vision ENT Denies vertigo, Denies dizziness, Denies headache(s) and Denies sore throat Card Denies chest pain, Denies leg edema and Denies lightheadedness Resp Denies cough, Denies hemoptysis and Denies wheezing GI Denies abdominal pain, Denies melena, Denies constipation, Denies diarrhea and Denies vomiting Denies dysuria, Denies urinary frequency and Denies urinary urgency Musc Denies arthralgias, Denies joint swelling, Denies numbness and Denies tingling Neuro Denies Abnormal speech present, Denies behavioral changes, Denies vertigo, Denies dizziness, Denies headache(s), Denies loss of vision, Denies memory loss, Denies numbness and Denies tingling Psych Denies anxiety, Denies behavioral changes, Denies depression, Denies memory loss and Denies panic attacks Efraín/Lymph Denies easy bleeding and Denies easy bruising Aller/Immun Denies wheezing Physical exam (Primary Care) Vital Signs: Last Vital Signs Pulse 105 H 12/12/22 15:37 Resp 16 12/12/22 15:37 BP 100/62 12/12/22 15:37 Pulse Ox 97 12/12/22 15:37 Oxygen Delivery Method Room Air 12/12/22 15:37 BMI result Body Mass Index 24.4 Tobacco/Smoking Status: Tobacco use Status Tobacco use date assessed 09/19/22 12/12/22 15:39 Patient Tobacco Use Status Former Tobacco user 12/12/22 15:39 Tobacco use type Smokeless Tobacco 12/12/22 15:39 e-Cigarette/Vaping Use Former Use 12/12/22 15:39 Thrive Assessment: Date of Thrive Assessment Date Thrive assessed 09/19/22 12/12/22 15:39 Const General: healthy appearing, no acute distress, alert and awake Nutritional Appearance: well nourished Orientation/consciousness: oriented to person, oriented to place and oriented to time HENMT Ears: TM's normal bilaterally General nose exam: Normal nasal mucous membranes and turbinates present Eyes Conjunctivae: conjunctivae normal Sclerae: sclerae normal Pupils: Equal, round and reactive pupils present Neck Neck: Yes no lymphadenopathy and Yes no JVD Thyroid: Thyroid normal Carotids: no bruits Resp Effort & Inspection: normal respiratory effort and not tachypneic Auscultation: no crackles, no rales, no rhonchi and no wheezes Cardio Rate: regular rate Rhythm: regular rhythm Heart sounds: no murmurs and normal S1 and S2 GI Palpation (GI): Soft to palpation, Tenderness to palpation present (GI) in the LLQ, no hepatomegaly and no splenomegaly Auscultation: normal bowel sounds Skin General skin exam: no rashes or lesions noted and dry skin Neuro General: oriented to person, oriented to place and oriented to time Cranial nerves: Yes Equal, round and reactive pupils present Speech: No Abnormal speech present Gait exam (Neuro): Normal gait present Motor exam (neuro): no tremor noted Extrem Right upper extremity: full ROM Left upper extremity: full ROM Right lower extremity: full ROM; no edema Left lower extremity: full ROM; no edema Psych Mental Status: mental status grossly normal Speech and movement: Normal speech and movement present Affect: normal affect Attitude: cooperative Thought process: Normal thought process present Assessment and Plan Assessment & Plan (1) Liver lesion: Code(s): K76.9 - Liver disease, unspecified Plan: As per HPI patient was noted to a liver lesion on CT abdomen pelvis. Recommendations were to get MRI abdomen with liver protocol with without contrast. (2) HTN (hypertension): Code(s): I10 - Essential (primary) hypertension Qualifiers: Hypertension type: primary hypertension Qualified Code(s): I10 - Essential (primary) hypertension Plan: Patient's blood pressure slightly low today in office. At home he reports blood pressure readings are high he wonders if this is his blood pressure cuff. Advised to do monitoring more regularly at different times of day. Goal blood pressures to be below 140/90 and above 100/60 day (3) Diverticulitis: Code(s): K57.92 - Diverticulitis of intestine, part unspecified, without perforation or abscess without bleeding Plan: Does have history of diverticulitis and reports recently having left lower quadrant abdominal pain with makes constipation and diarrhea. Will supply patient with antibiotic to hold onto in case of acute flare in the next month. Orders: Orders MR abdomen wo/w con Today K76.9 - Liver disease, unspecified XR chest 2V Today J98.11 - Atelectasis Medications: New amoxicillin-pot clavulanate 875-125 mg 1 tab PO BID 7 days 14 tabs 0RF K57.92 - Diverticulitis of intestine, part unspecified, without perforation or abscess without bleeding Coding Level of Care Code Est Pt Level 4 (40489) Diagnoses Liver lesion K76.9 Primary hypertension I10 Hypertension type: primary hypertension Diverticulitis K57.92
== END 2022-12-12 16:12 | disposition home or self-care (01) ==
PROVIDERS: PCP Physician Assistant; Visit Provider Physician Assistant
DX: K76.9 Liver disease, unspecified (principal); I10 Essential (primary) hypertension; K57.92 Diverticulitis of intestine, part unspecified, without perforation or abscess without bleeding
CPT/HCPCS: 99214

== ENCOUNTER 2023-01-28 09:26 | Outpatient (REF) | payer OTHER, SELFPAY ==
--- NOTE | ~2023-01-28 | MR_ITS ---
EXAMINATION: MR ABDOMEN WITHOUT AND WITH CONTRAST CLINICAL INFORMATION: 47-year-old male with history of liver disease. Patient found to have hepatic steatosis and nonspecific liver lesions on prior abdominal CT imaging. Follow-up evaluation. COMPARISON: Abdomen CT from 08/24/2022. TECHNIQUE: MR abdomen was performed without and with use of 8 mL intravenous Gadavist. Postcontrast images are performed in multiphase dynamic sequences. Imaging was performed in 3 planes. FINDINGS: LUNG BASES: Normal. No pulmonary consolidation or pleural effusion. LIVER: Liver has normal size and contour. If using the spleen as an internal reference, there is evidence of hepatic steatosis on opposed phase gradient echo imaging. No cirrhotic morphology. There are two adjacent T2 hyperintense lesions in the posterior right hepatic lobe that measure up to 1.2 cm and 1.1 cm AP dimension and exhibit a centripetal pattern of contrast opacification and are homogeneously hyperenhancing on the equilibrium phase images. The features are diagnostic of cavernous hemangioma/venous malformations. GALLBLADDER AND BILIARY TREE: Gallbladder has normal wall thickness. No evidence of cholelithiasis, pericholecystic fluid or dilated bile ducts. PANCREAS: Normal. No edema, pancreatic ductal dilatation or mass. SPLEEN: Normal. ADRENAL GLANDS: Normal. KIDNEYS: Kidneys are normal in size and enhance symmetrically. No renal mass, hydronephrosis or perinephric edema. BOWEL AND PERITONEUM: No dilated bowel loops. No focal bowel wall thickening or mucosal hyperenhancement. There is subtle haziness within central mesentery consistent with mild mesenteric panniculitis. VASCULATURE: Abdominal aorta is normal in size and its branches are widely patent. Inferior vena cava is normal. The left renal vein has a retroaortic course. LYMPH NODES: No pathologic sized lymph nodes in the abdomen. SKELETAL: No suspicious bone lesions. The images acquired at a large [facility] reveal moderate disc degenerative change and grade 1 anterolisthesis at L5-S1. MR/MR abdomen wo/w con IMPRESSION: * There is hepatic steatosis. * There are two adjacent cavernous hemangioma/venous malformations in the posterior right hepatic lobe. * Mild mesenteric panniculitis.
[2023-01-28] MEDS: gadobutroL 10 ML VIAL IVPUSH (10:25)
== END 2023-01-28 09:27 | disposition home or self-care (01) ==
LOC: HO.MRI 09:26
PROVIDERS: PCP Physician Assistant; Visit Provider Physician Assistant
DX: K76.9 Liver disease, unspecified (principal)
CPT/HCPCS: 74183; A9585

== ENCOUNTER 2023-12-19 14:57 | Outpatient (AMB) | payer OTHER, SELFPAY ==
[2023-12-19 15:11] VITALS: BP 160/110; PULSE 90; O2SAT 96; BMI 26.6
--- NOTE | 2023-12-19 15:11 | A.OFFPC_ITS ---
Vital Signs 12/19/23 15:11 Height 5 ft 10 in Weight 185 lb 4 oz BMI 26.6 BP 160/110 H Blood Pressure Location Lt brachial Position Sitting Pulse 90 Pulse Source Pulse Oximeter Pulse Oximetry (%) 96 Oxygen Delivery Method Room Air Intake Visit Reasons: follow up from last appt Intake Note: Pt refuse flu vaccine. Community Mental Health Worker Required: No Accompanied by: Self / Same As Patient Allergies Azythromycin Adverse Reaction (Unknown, Uncoded 12/19/23 15:13) diarrhea Medication List - Last Reconciled 12/19/23 by Sharan Omer PA-C clobetasol 0.05% 1 appl topical DAILY lisinopril 5 mg PO DAILY 30 days multivitamin 1 tab PO DAILY omeprazole 20 mg PO DAILY@0630 Tobacco use date assessed: 12/19/23 Dental Screening Dental Screen Date: 12/12/22 HPI follow up from last appt HPI Details Patient is a 48-year-old male here today for a f/u visit..? Patient has a past medical history significant for alcohol use disorder, diverticulitis, HTN. Concerns--> Chance continues to suffer with a tried plicae skin lesion over his scalp to which he had used clobetasol solution though was not helpful. He reports he was recently on prednisone for another issue though his skin started to clear up. He also has more skin manifestations over his legs arms and chest. They appear to be dry flaky plaques most consistent with perhaps a psoriasis. He has been calling around to Dermatology offices though has not been able to get in. .. .. HTN:? Patient's blood pressure today in office elevated today in office. He reports he has not been taking his blood pressure medication. Continues lisinopril 5mg. He reports checking his blood pressure and reports high readings. He reports he has not been taking his blood pressure medication over the last week..? He is asymptomatic without any dizziness or fatigue.? He has not been regularly checking his blood pressure at home over the last few weeks. PLAN: Will increase his lisinopril to 10 mg daily. .. Alcohol use disorder:? Patient has unfortunately relapse, he admits to not drinking 5-6 beers and a half pt of vodka per day again. He does understand this is detrimental to his health and will try to stopped drinking again. He did have some recent sobriety. panic disorder : He reports his anxiety has not returned since he has started drinking again. He is now willing to try daily medication to help him with his anxiety. [facility] Medical History Tick bite HTN (hypertension) ETOH abuse Surgical History No pertinent past surgical history Social History Household Members: None [facility] Do you presently have visiting nurse or other home services: No Alcohol intake: current Alcohol intake frequency: holidays/special occasions only Alcohol type: beer and hard liquor Patient Tobacco Use Status: Former Tobacco user Tobacco use type: Smokeless Tobacco e-Cigarette/Vaping Use: Former Use Second Hand Smoke Exposure: No service: No Current occupational status: employed Current occupational exposures/hazards: No Cognitive needs: No Hearing needs: No Vision needs: No Questionnaire PHQ-9 Over the last 2 weeks, how often have you been bothered by any of the following problems? 1. Little interest or pleasure in doing things: not at all 2. Feeling down, depressed, or hopeless: not at all 3. Trouble falling or staying asleep, or sleeping too much: not at all 4. Feeling tired or having little energy: not at all 5. Poor appetite or overeating: not at all 6. Feeling bad about yourself - or that you are a failure or have let yourself or your family down: not at all 7. Trouble concentrating on things, such as reading the newspaper or watching television: not at all 8. Moving or speaking so slowly that other people could have noticed. Or the opposite - being so fidgety or restless that you have been moving around a lot more than usual: not at all 9. Thoughts that you would be better off or of hurting yourself in some way: not at all Total score: 0 Depression Screening Interpretation: Negative Depression Screening Done: Yes 25962 - PHQ-9 Billing: Yes Source: Developed by Drs. Miguel Angel Driver, Racheal Smith, Danilo Parks and colleagues, with an educational ciro from [email or web address]. Thrive Questionnaire Date Thrive assessed: 12/19/23 I am a: Patient What is your living situation today?: I have a steady place to live Within the past 12 months, did the food you bought not last and you didn't have the money to get more?: Never true Within the past 12 months, did you worry whether your food would run out before you got money to buy more?: Never true Do you have trouble paying for medicines?: No Do you have trouble getting transportation to medical appointments?: No Do you have trouble paying your heating and electricity bill?: No Do you have trouble taking care of your child, family member or friend?: No Do you have trouble with day-to-day activities such as bathing, preparing meals, shopping, managing finances, etc.?: No Are you currently unemployed and looking for a job?: No Are you interested in more education?: No Please select the resources that you would like help with: None Currently or been in a relationship where the following occur: No concerns reported THRIVE Score: 0 AUDIT C Alcohol Use Questionnaire (AUDIT-C) 1. How often do you have a drink containing alcohol?: Never 3. How often do you have six or more drinks on one occasion?: Never Total Score: 0 JAMEY-7 AMB Questionnaire JAMEY-7 Date JAMEY - 7 assessed: 12/19/23 Feeling nervous, anxious, or on edge: 0 = Not at all Not being able to stop or control worryin = Not at all Worrying too much about different things: 0 = Not at all Trouble relaxin = Not at all Being so restless that it is hard to sit still: 0 = Not at all Becoming easily annoyed or irritable: 0 = Not at all Feeling afraid as if something awful might happen: 0 = Not at all Total JAMEY-7 score (0-4 normal; 5-9 mild; 10-14 moderate; 15-21 severe): 0 Source: Developed by Drs. Miguel Angel Driver, Racheal Smith, Danilo Parks and colleagues, with an educational ciro from [email or web address]. JAMEY-7 Assessment Billing JAMEY-7 Assessment Tool: JAMEY-7 Assessment 01687 Review of Systems Const Denies headache(s) Eyes Denies loss of vision ENT Denies vertigo, Denies dizziness, Denies headache(s) and Denies sore throat Card Denies chest pain, Denies leg edema and Denies lightheadedness Resp Denies cough, Denies hemoptysis and Denies wheezing GI Denies abdominal pain, Denies melena, Denies constipation, Denies diarrhea and Denies vomiting Denies dysuria, Denies urinary frequency and Denies urinary urgency Musc Denies arthralgias, Denies joint swelling, Denies numbness and Denies tingling Neuro Denies Abnormal speech present, Denies behavioral changes, Denies vertigo, Denies dizziness, Denies headache(s), Denies loss of vision, Denies memory loss, Denies numbness and Denies tingling Psych Denies anxiety, Denies behavioral changes, Denies depression, Denies memory loss and Denies panic attacks Efraín/Lymph Denies easy bleeding and Denies easy bruising Aller/Immun Denies wheezing Physical exam (Primary Care) Vital Signs: Last Vital Signs Pulse 90 12/19/23 15:11 BP 160/110 H 12/19/23 15:11 Pulse Ox 96 12/19/23 15:11 Oxygen Delivery Method Room Air 12/19/23 15:11 BMI result Body Mass Index 26.6 Tobacco/Smoking Status: Tobacco use Status Tobacco use date assessed 12/19/23 12/19/23 15:14 Patient Tobacco Use Status Former Tobacco user 12/19/23 15:12 Tobacco use type Smokeless Tobacco 12/19/23 15:12 e-Cigarette/Vaping Use Former Use 12/19/23 15:12 PHQ-9: PHQ-9 Score PHQ-9: Total score 0 12/19/23 15:14 Depression Screening Interpretation: Negative Thrive Assessment: Date of Thrive Assessment Date Thrive assessed 12/19/23 12/19/23 15:14 Currently or been in a relationship where the following occur: No concerns reported Const General: healthy appearing, no acute distress, alert and awake Nutritional Appearance: well nourished Orientation/consciousness: oriented to person, oriented to place and oriented to time HENMT Ears: TM's normal bilaterally General nose exam: Normal nasal mucous membranes and turbinates present Eyes Conjunctivae: conjunctivae normal Sclerae: sclerae normal Pupils: Equal, round and reactive pupils present Neck Neck: Yes no lymphadenopathy and Yes no JVD Thyroid: Thyroid normal Carotids: no bruits Resp Effort & Inspection: normal respiratory effort and not tachypneic Auscultation: no crackles, no rales, no rhonchi and no wheezes Cardio Rate: regular rate Rhythm: regular rhythm Heart sounds: no murmurs and normal S1 and S2 GI Palpation (GI): Soft to palpation, nontender, no hepatomegaly and no splenomegaly Auscultation: normal bowel sounds Skin General skin exam: no rashes or lesions noted and dry skin Neuro General: oriented to person, oriented to place and oriented to time Cranial nerves: Yes Equal, round and reactive pupils present Speech: No Abnormal speech present Gait exam (Neuro): Normal gait present Motor exam (neuro): no tremor noted Extrem Right upper extremity: full ROM Left upper extremity: full ROM Right lower extremity: full ROM; no edema Left lower extremity: full ROM; no edema Psych Mental Status: mental status grossly normal Speech and movement: Normal speech and movement present Affect: normal affect Attitude: cooperative Thought process: Normal thought process present Coding Level of Care Code Est Pt Level 4 (26505) Diagnoses Primary hypertension I10 Hypertension type: primary hypertension Psoriasis L40.9 Panic disorder F41.0 Alcohol use disorder F10.90 JAMEY (generalized anxiety disorder) F41.1 Additional Codes JAMEY-7 Assessment Billing - JAMEY-7 Assessment Tool: JAMEY-7 Assessment 14089 ([id number]) Assessment & Plan Assessment & Plan (1) HTN (hypertension): Code(s): I10 - Essential (primary) hypertension Category: Medical Qualifiers: Hypertension type: primary hypertension Qualified Code(s): I10 - Essential (primary) hypertension Plan: His blood pressure elevated today in office. He reports not taking his lisinopril today. He is not monitoring his blood pressure at home. Unfortunately drinking excessively again. He is willing to increase his lisinopril to 10 mg for better blood pressure control. (2) Psoriasis: Code(s): L40.9 - Psoriasis, unspecified Category: Medical Plan: Patient continues to have psoriasis plaques over his scalp though now has spread to his chest and lower extremities. He has not been able to make an appointment with endoscopy support specialist. Will place since that referral to Dermatology. He reports when he was on prednisone his skin lesions were starting to clear up. Will supply patient with prednisone taper and a topical steroid to use on most problematic areas. (3) Panic disorder: Code(s): F41.0 - Panic disorder [episodic paroxysmal anxiety] Category: Medical Plan: As per HPI patient does suffer from a generalized anxiety disorder with panic. He is willing to start daily medication to help reduce his anxiety. (4) Alcohol use disorder: Category: Medical Plan: Patient does admit to drinking 5-6 beers a day and a half a pint of vodka. He does understand he needs to quit drinking. He did quit drinking for year and a half at 1 point though relapsed. He is interested in getting his anxiety treated thus will start Zoloft 50 mg. (5) JAMEY (generalized anxiety disorder): Code(s): F41.1 - Generalized anxiety disorder Category: Medical Plan: As above patient's anxiety has been elevated as of late. He feels a lot of stress at work. He is willing to start SSRI therapy to help him control his anxiety which he feels is the reason he drinks alcohol. Orders: Orders Comprehensive [place]. Panel Fast 12/19/23 I10 - Essential (primary) hypertension Microalbumin, Random (w Creat) 12/19/23 I10 - Essential (primary) hypertension Complete Blood Count no Diff 12/19/23 I10 - Essential (primary) hypertension Referrals Dermatology Referral L40.9 - Psoriasis, unspecified Medications: New lisinopril 10 mg PO DAILY 30 tabs 3RF 30 days I10 - Essential (primary) hypertension prednisone take 3 tabs x 4 days, take 2 tabs x 4 days , take 1 tab x 4 days. 10 mg PO DIRECTED 24 tabs 0RF 12 days L40.9 - Psoriasis, unspecified prednisone take 3 tabs x 4 days, take 2 tabs x 4 days , take 1 tab x 4 days. 10 mg PO DIRECTED 12 days 12 tabs 0RF L40.9 - Psoriasis, unspecified triamcinolone acetonide 0.1% 1 appl topical BID 80 grams 0RF 30 days L40.9 - Psoriasis, unspecified sertraline 50 mg PO DAILY 90 tabs 1RF F41.1 - Generalized anxiety disorder Discontinued lisinopril Discontinued Reason: Doctor's Order 5 mg PO DAILY 30 days 30 tabs 3RF I10 - Essential (primary) hypertension Patient Instructions: Goal: Blood pressure to be below 140/90, stopped drinking alcohol in excess Barriers: Adherence to physical activity and healthy eating habits. Alcohol use disorder
== END 2023-12-19 15:44 | disposition home or self-care (01) ==
PROVIDERS: PCP Physician Assistant; Visit Provider Physician Assistant
DX: I10 Essential (primary) hypertension (principal); L40.9 Psoriasis, unspecified; F41.0 Panic disorder [episodic paroxysmal anxiety]; F10.90 Alcohol use, unspecified, uncomplicated; F41.1 Generalized anxiety disorder

== ENCOUNTER → 2023-12-19 14:57 | Outpatient (BNVA) | payer OTHER, SELFPAY | PROVIDERS: PCP Physician Assistant; Visit Provider Physician Assistant | DX: I10 Essential (primary) hypertension (principal); L40.9 Psoriasis, unspecified; F10.90 Alcohol use, unspecified, uncomplicated; F41.1 Generalized anxiety disorder | CPT/HCPCS: 96127; 99212 ==

== ENCOUNTER 2024-02-18 15:11 | Outpatient (REF) | payer OTHER, SELFPAY ==
[2024-02-18 15:58] LABS: Hemoglobin 14.8 g/dl (14.0-18.0); Mean Corpuscular HGB Conc 35.2 g/dl (31.0-36.0); Mean Corpuscular Hemoglobin 34.2 pg (27.0-33.0); Mean Platelet Volume 9.5 fL (9.4-12.4); Platelet Count 262 X10*3/uL (160-400); Red Blood Count 4.33 X10*6/uL (4.60-5.80); Red Cell Distribution Width 12.2 % (11.0-16.0); White Blood Count 6.8 X10*3/uL (4.8-10.8)
[2024-02-18 16:46] LABS: Albumin Level 4.2 g/dL (3.5-5.0); Anion Gap 14 (12-20); Aspartate Amino Transferase 32 U/L (5-37); Bilirubin Total 0.4 mg/dL (0.0-1.0); Blood Urea Nitrogen 15 mg/dL (9-16); Calcium 9.3 mg/dL (8.4-10.2); Carbon Dioxide 28 mmol/L (22-29); Chloride 99 mmol/L (96-108); Estimated Glomerular Filt Rate > 60; Glucose Fasting 97 mg/dL (60-99); Potassium 3.9 mmol/L (3.3-5.1); Sodium 137 mmol/L (135-145); Total Protein 7.7 g/dL (6.5-8.0)
[2024-02-18 16:57] LABS: Creatinine Urine 167.22 mg/dL; Microalbum/Creatinine Ratio Ur 6.5 ug/mg cr (<30)
[2024-02-18 17:22] LABS: Alanine Aminotransferase 41 U/L (0-40); Alkaline Phosphatase 53 U/L (39-117)
--- OUTSIDE RECORDS SUMMARY | 2024-02-19 22:20 | XMS_ITS | Patient Health Record ---
Author Organization [facility] Address [address] [place] [address] Care Team Providers Care Bioinformatics Assistant Name Role Phone Sharan Omer Primary Care Provider UnavailMiguel Angel Elias Unavailable [phone] ALLERGIES No Known Allergies REASON FOR REFERRAL No Information MEDICATIONS Medication SIG (Take, Route, Fr equency, Duration) Notes Start Date End Date Status Lisinopril 10 MG Oral for 90 A ctive Omeprazole 20 MG Oral for 90 A ctive IMMUNIZATIONS Vaccine Route Administration Date Status Comme nts Influenza Unknown 03/28/2021 Refused SOCIAL HISTORY Tobacco Use: Social History Observation Description Date Details (start date - stop date) Former Smoker NA - NA Sex Assigned At : Social History Observation Description Sex Assigned At Unknown Tobacco Use/Smoking Question Answer Notes Patient is a former smoker How long has it been since you last smoked? > 10 years Alcohol Screen Question Answer Notes Did you have a drink contain ing alcohol in the past year? Yes How often did you have a dri nk containing alcohol in the past year? 4 or more times a week (4 points) How many drinks did you have on a typical day when you were drinking in the past year? 7 to 9 drinks (3 points) Points 7 Interpretation Positive PROBLEMS Problem Type ICD Code Onset Dates Problem Status W/U Status Risk SNOMED Code Notes Problem Gastroesophageal reflux disease, unspecified whether esophagitis present (K21.9) Active confirmed 150269157 Problem Diverticulitis of large intestine without perforation or abscess without bleeding (K57.32) Active confirmed 7075413 Problem Abnormal CT scan, colon (R93.3) Active confirmed 320332564 Problem Diverticulosis of colon (K57.30) Active confirmed Diverticulosi s of colon (750129484) Problem Gastroesophageal reflux (K21.9) Active confirmed Esophageal reflux finding ([id number]) PLAN OF TREATMENT Pending Test Test Name Order Date Pathology 04/28/2021 Future Test Test Name Order Date UPPER GI ENDOSCOPY 03/28/2021 COLONOSCOPY 03/28/2021 Insurance Providers Payer Name Payer Address Payer Phone Subscriber Number Group Number Insured Name Patient Relationship to Insured Coverage Start Date Coverage End Date [facility] [address] [address] [place], [place] [id number] [phone] [id number] DIANNA BAUTISTA Self - patient is the insured MEDICAL (GENERAL) HISTORY Medical History History ICD Code Hypertension Denies [place],DM,CVA,Lung disease,renal dise ase Diverticulitis 09/2020--CT at [facility]-david sandeep with outpt antibiotics GERD--on omeprazole for years Surgical History Surgery Date(Month/Year) Hand surgery-- right--as a child---while playing with firecrackers
== END 2024-02-18 15:12 | disposition home or self-care (01) ==
LOC: HO.LAB 15:11
PROVIDERS: PCP Physician Assistant; Visit Provider Physician Assistant
DX: I10 Essential (primary) hypertension (principal)
CPT/HCPCS: 36415; 80053; 82043; 82570; 85027

== ENCOUNTER 2024-02-19 10:33 | Outpatient (AMB) | payer OTHER, SELFPAY ==
--- NOTE | 2024-02-19 10:34 | A.OFFPC_ITS ---
Vital Signs 02/19/24 10:39 Height 5 ft 10 in Weight 181 lb 2 oz BMI 26.0 BP 124/88 Blood Pressure Location Lt brachial Position Sitting Pulse 113 H Pulse Source Pulse Oximeter Pulse Oximetry (%) 97 Oxygen Delivery Method Room Air Intake Visit Reasons: annual exam Intake Note: Patient is here today for a physical. 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 Accompanied by: Self / Same As Patient Allergies Azythromycin Adverse Reaction (Unknown, Uncoded 02/19/24 11:13) diarrhea Medication List - Last Reconciled 02/19/24 by Sharan Omer PA-C clobetasol 0.05% 1 appl topical DAILY lisinopril 10 mg PO DAILY 30 days multivitamin 1 tab PO DAILY omeprazole 20 mg PO DAILY@0630 sertraline 50 mg PO DAILY triamcinolone acetonide 0.1% 1 appl topical BID 30 days Tobacco use date assessed: 12/19/23 Dental Screening Dental Screen Date: 02/19/24 Did you have a dental visit in the last 12 months?: No Did you have a dental problem in the last 6 months where you did not have access to dental care?: No Was dental information given to patient?: Patient has dentist HPI annual exam HPI Details Patient is a 48-year-old male here today for a f/u visit..? Patient has a past medical history significant for alcohol use disorder, diverticulitis, HTN. Psoriasis: The patient also has a history of psoriasis, which has significantly affected the scalp, causing itchiness and flakiness; symptoms are reportedly worsening. Psoriatic lesions have also been noted on the legs but are less bothersome. Various treatments, including creams and medicated shampoos, have been trialed with limited success. Has dermatology appointment but not until August 2024 and would like to see a business process expert sooner as his scalp issue has been getting worse and will bothersome. PLAN: Will try ketoconazole shampoo. .. .. HTN:? Patient's blood pressure today in office acceptable. His lisinopril dose was increased to 10 mg at last office visit which seems to have better control over his blood pressure. .. Alcohol use disorder:? Patient has unfortunately relapse, he admits to not drinking 5-6 beers and a half pt of vodka per day again. He does understand this is detrimental to his health and will try to stopped drinking again. Of note he did have some brief sobriety in the past. He is interested in quitting drinking in is willing to try withdrawal medications. Will refer him to addiction treatment as well to consider Vivitrol panic disorder : He reports his anxiety has not returned since he has started drinking again. He is now willing to try daily medication to help him with his anxiety. Colorectal cancer screening: Colonoscopy done in April of 2019 , no polyps found repeat 10 years vaccine: UTD with COVID VAccine, Declines flu vaccine. needs Tdap though declines today PFSH Medical History Tick bite HTN (hypertension) ETOH abuse Surgical History No pertinent past surgical history Social History (Updated 02/19/24 @ 11:18 by Sharan Omer PA-C) Household Members: None Housing: Condominium Do you presently have visiting nurse or other home services: No Alcohol intake: current Alcohol intake frequency: holidays/special occasions only Alcohol type: beer and hard liquor Patient Tobacco Use Status: Former Tobacco user Tobacco use type: Smokeless Tobacco e-Cigarette/Vaping Use: Former Use Second Hand Smoke Exposure: No service: No Current occupational status: employed Current occupational exposures/hazards: No Cognitive needs: No Hearing needs: No Vision needs: No Questionnaire PHQ-9 Over the last 2 weeks, how often have you been bothered by any of the following problems? 1. Little interest or pleasure in doing things: not at all 2. Feeling down, depressed, or hopeless: not at all 3. Trouble falling or staying asleep, or sleeping too much: several days 4. Feeling tired or having little energy: not at all 5. Poor appetite or overeating: not at all 6. Feeling bad about yourself - or that you are a failure or have let yourself or your family down: not at all 7. Trouble concentrating on things, such as reading the newspaper or watching television: not at all 8. Moving or speaking so slowly that other people could have noticed. Or the opposite - being so fidgety or restless that you have been moving around a lot more than usual: not at all 9. Thoughts that you would be better off or of hurting yourself in some way: not at all Total score: 1 Depression Screening Interpretation: Negative Depression Screening Done: Yes 71058 - PHQ-9 Billing: Yes Source: Developed by Drs. Miguel Angel Drievr, Racheal Smith, Danilo Parks and colleagues, with an educational ciro from [employer]. Thrive Questionnaire Date Thrive assessed: 02/19/24 I am a: Patient What is your living situation today?: I have a steady place to live Within the past 12 months, did the food you bought not last and you didn't have the money to get more?: Never true Within the past 12 months, did you worry whether your food would run out before you got money to buy more?: Never true Do you have trouble paying for medicines?: No Do you have trouble getting transportation to medical appointments?: No Do you have trouble paying your heating and electricity bill?: No Do you have trouble taking care of your child, family member or friend?: No Do you have trouble with day-to-day activities such as bathing, preparing meals, shopping, managing finances, etc.?: No Are you currently unemployed and looking for a job?: No Are you interested in more education?: No Please select the resources that you would like help with: None Currently or been in a relationship where the following occur: No concerns reported THRIVE Score: 0 AUDIT C Alcohol Use Questionnaire (AUDIT-C) 1. How often do you have a drink containing alcohol?: 4 or more times a week 2. How many drinks containing alcohol do you have on a typical day when you are drinking?: 7 to 9 3. How often do you have six or more drinks on one occasion?: Daily or almost daily Total Score: 11 JAMEY-7 AMB Questionnaire JAMEY-7 Date JAMEY - 7 assessed: 02/19/24 Feeling nervous, anxious, or on edge: 1 = Several days Not being able to stop or control worryin = Several days Worrying too much about different things: 1 = Several days Trouble relaxin = Several days Being so restless that it is hard to sit still: 0 = Not at all Becoming easily annoyed or irritable: 0 = Not at all Feeling afraid as if something awful might happen: 0 = Not at all Total JAMEY-7 score (0-4 normal; 5-9 mild; 10-14 moderate; 15-21 severe): 4 Source: Developed by Drs. Miguel Angel Driver, Racheal Smith, Danilo Parks and colleagues, with an educational ciro from [employer]. JAMEY-7 Assessment Billing JAMEY-7 Assessment Tool: JAMEY-7 Assessment 60306 Review of Systems Const Denies body aches, Denies chills, Denies excessive sweating, Denies fatigue, Denies fever(s) and Denies headache(s) Eyes Denies blurry vision ENT Denies dysphagia, Denies vertigo, Denies dizziness, Denies headache(s), Denies hearing loss and Denies tinnitus Card Denies chest pain, Denies chest pain with activity, Denies syncope, Denies irregular heart rhythm and Denies dyspnea Resp Denies chest congestion, Denies cough, Denies hemoptysis, Denies dyspnea and Denies wheezing GI Denies abdominal pain, Denies melena, Denies hematochezia, Denies coffee ground emesis, Denies dysphagia, Denies diarrhea, Denies nausea and Denies vomiting Denies difficulty urinating, Denies dysuria, Denies urinary frequency, Denies urinary hesitancy and Denies urinary urgency Musc Denies arthralgias, Denies limited range of motion, Denies muscle cramps and Denies muscle weakness Skin/Breast Denies rash and Denies skin ulcer Neuro Denies Abnormal speech present, Denies confusion, Denies vertigo, Denies dizziness, Denies syncope, Denies headache(s), Denies memory loss and Denies seizure-like activity Psych Denies anxiety, Denies confusion, Denies depression, Denies memory loss, Denies panic attacks and Denies paranoia Endo Denies excessive sweating, Denies fatigue, Denies flushing, Denies polydipsia and Denies polyuria Aller/Immun Denies wheezing Physical exam (Primary Care) Vital Signs: Last Vital Signs Pulse 113 H 02/19/24 10:39 BP 124/88 02/19/24 10:39 Pulse Ox 97 02/19/24 10:39 Oxygen Delivery Method Room Air 02/19/24 10:39 BMI result Body Mass Index 26.0 Tobacco/Smoking Status: Tobacco use Status Tobacco use date assessed 12/19/23 02/19/24 10:35 Patient Tobacco Use Status Former Tobacco user 02/19/24 11:18 Tobacco use type Smokeless Tobacco 02/19/24 11:18 e-Cigarette/Vaping Use Former Use 02/19/24 11:18 PHQ-9: PHQ-9 Score PHQ-9: Total score 1 02/19/24 11:45 Depression Screening Interpretation: Negative Thrive Assessment: Date of Thrive Assessment Date Thrive assessed 02/19/24 02/19/24 10:52 Currently or been in a relationship where the following occur: No concerns reported Const General: cooperative, comfortable, no acute distress, alert and awake; No confusion Orientation/consciousness: oriented to person, oriented to place, patient oriented x3 and No confusion HENMT Head: Yes normocephalic Ears: external ears normal and TM's normal bilaterally Face and sinus: No sinus tenderness Mouth: Normal oral and palatal mucosa present and tongue normal Teeth and gingiva: dentition normal and gingiva normal Throat: Yes posterior oropharynx normal, Yes tonsils normal and Yes uvula midline Eyes Conjunctivae: conjunctivae normal Sclerae: sclerae normal Pupils: Equal, round and reactive pupils present EOM: EOMs intact bilaterally Direct Ophthalmoscopy: No no photophobia Neck Neck: Yes no lymphadenopathy, No tender and Yes no JVD Thyroid: Thyroid normal Carotids: no bruits Chest Chest palpation & inspection: no tenderness Resp Effort & Inspection: normal respiratory effort, no audible wheezes, not labored and no stridor Auscultation: no crackles, no rales, no rhonchi and no wheezes Cardio Jugular venous distension: no JVD Rate: regular rate, not bradycardic and not tachycardic Rhythm: regular rhythm Bruits: no carotid bruits Peripheral pulses: Peripheral pulses 2+ throughout GI Inspection: Yes normal to inspection, No abdominal wall ecchymosis and No visible herniation Palpation (GI): Soft to palpation, nontender, no guarding, not rigid and No hepatosplenomegaly present Auscultation: normoactive bowel sounds General: Yes no CVA tenderness Back/Spine/Pelvis Back: no CVA tenderness and No back tenderness Cervical Spine: cervical ROM normal Thoracic/Lumbar Spine: thoracic and lumbar spine normal to inspection, straight leg raise negative bilaterally, No thoraco-lumbar ROM limited and No lumbar spinal tenderness Skin Lesions: no lesions Rashes: no rashes Wounds: no wounds Neuro General: oriented to person, oriented to place, patient oriented x3, CN's II-XI intact bilaterally and No confusion Cranial nerves: Yes Equal, round and reactive pupils present and Yes Normal accommodation reflex present Cognition (Neuro): normal cognition Speech: No Abnormal speech present Gait exam (Neuro): Normal gait present Motor exam (neuro): 5/5 motor strength present throughout Extrem Right upper extremity: full ROM; no cyanosis Left upper extremity: full ROM; no cyanosis Right lower extremity: no edema Left lower extremity: no edema Psych Appearance: grossly normal Mental Status: mental status grossly normal Affect: normal affect Attitude: cooperative Thought process: Normal thought process present Coding Level of Care Code Est Pt Prev Care 40-64y(94391) Diagnoses Annual physical exam Z00.00 Primary hypertension I10 Hypertension type: primary hypertension Psoriasis L40.9 Panic disorder F41.0 Alcohol use disorder F10.90 JAMEY (generalized anxiety disorder) F41.1 Alcohol withdrawal syndrome without complication F10.930 Complication of substance-induced condition: uncomplicated Additional Codes JAMEY-7 Assessment Billing - JAMEY-7 Assessment Tool: JAMEY-7 Assessment 43833 ([id number]) PHQ-9 - 65979 - PHQ-9 Billing: Yes ([id number]) Assessment & Plan Assessment & Plan (1) Annual physical exam: Code(s): Z00.00 - Encounter for general adult medical examination without abnormal fin dings Category: Medical Plan: As per HPI (2) HTN (hypertension): Code(s): I10 - Essential (primary) hypertension Category: Medical Qualifiers: Hypertension type: primary hypertension Qualified Code(s): I10 - Essential (primary) hypertension Plan: His blood pressure elevated today in office. He reports not taking his lisinopril today. He is not monitoring his blood pressure at home. Unfortunately drinking excessively again. He is willing to increase his lisinopril to 10 mg for better blood pressure control. (3) Psoriasis: Code(s): L40.9 - Psoriasis, unspecified Category: Medical Plan: Patient continues to have psoriasis plaques over his scalp though now has spread to his chest and lower extremities. Will try to get sooner appointment with Dermatology. Will try ketoconazole shampoo. He reports when he was on prednisone his skin lesions were starting to clear up. Will supply patient with prednisone taper and a topical steroid to use on most problematic areas. (4) Panic disorder: Code(s): F41.0 - Panic disorder [episodic paroxysmal anxiety] Category: Medical Plan: As per HPI patient does suffer from a generalized anxiety disorder with panic. He is willing to start daily medication to help reduce his anxiety. (5) Alcohol use disorder: Category: Medical Plan: Patient does admit to drinking 5-6 beers a day and a half a pint of vodka. He does understand he needs to quit drinking. He did quit drinking for year and a half at 1 point though relapsed. He is interested in getting his anxiety treated thus will start Zoloft 50 mg (6) JAMEY (generalized anxiety disorder): Code(s): F41.1 - Generalized anxiety disorder Category: Medical Plan: He reports his anxiety has been fairly well controlled with the exception of recently selling his vacation camper which caused him some anxiety. He does admit to taking some of his girlfriend's lorazepam to get him through the acute anxiety face. Otherwise sertraline has been working well for him. (7) Alcohol withdrawal: Code(s): F10.939 - Alcohol use, unspecified with withdrawal, unspecified Category: Medical Qualifiers: Complication of substance-induced condition: uncomplicated Qualified Code(s): F10.930 - Alcohol use, unspecified with withdrawal, uncomplicated Plan: Chance is looking to stopped drinking at the 1st of the year. Will supply patient with withdrawal medication to help him with some the symptoms. He is interested in seeing addiction support specialist as well Orders: Referrals Dermatology Referral L40.9 - Psoriasis, unspecified Addiction Medicine Referral F10.930 - Alcohol use, unspecified with withdrawal, uncomplicated Medications: New ondansetron 8 mg PO Q8H PRN 21 tabs 0RF nausea and vomiting 7 days F10.930 - Alcohol use, unspecified with withdrawal, uncomplicated ketoconazole 2% 1 appl topical 3XW 120 mL 3RF 4 weeks L40.9 - Psoriasis, unspecified clonidine HCl 0.1 mg PO BID 20 tabs 0RF 10 days F10.930 - Alcohol use, unspecified with withdrawal, uncomplicated hydroxyzine HCl 25 mg PO BEDTIME 14 tabs 0RF 14 days F10.930 - Alcohol use, unspecified with withdrawal, uncomplicated Refilled triamcinolone acetonide 0.1% 1 appl topical BID 80 grams 3RF 30 days L40.9 - Psoriasis, unspecified
[2024-02-19 10:39] VITALS: BP 124/88; PULSE 113; O2SAT 97; BMI 26.0
== END 2024-02-19 11:42 | disposition home or self-care (01) ==
PROVIDERS: PCP Physician Assistant; Visit Provider Physician Assistant
DX: Z00.00 Encounter for general adult medical examination without abnormal findings (principal); I10 Essential (primary) hypertension; L40.9 Psoriasis, unspecified; F41.0 Panic disorder [episodic paroxysmal anxiety]; F10.90 Alcohol use, unspecified, uncomplicated; F41.1 Generalized anxiety disorder; F10.930 Alcohol use, unspecified with withdrawal, uncomplicated

== ENCOUNTER → 2024-02-19 10:33 | Outpatient (BNVA) | payer OTHER, SELFPAY | PROVIDERS: PCP Physician Assistant; Visit Provider Physician Assistant | DX: Z00.00 Encounter for general adult medical examination without abnormal findings (principal); I10 Essential (primary) hypertension; L40.9 Psoriasis, unspecified; F41.9 Anxiety disorder, unspecified; F10.90 Alcohol use, unspecified, uncomplicated; F41.1 Generalized anxiety disorder; F10.930 Alcohol use, unspecified with withdrawal, uncomplicated | CPT/HCPCS: 96127; 99396 ==

== ENCOUNTER 2024-05-19 14:03 | Outpatient (AMB) | payer OTHER, SELFPAY ==
--- NOTE | 2024-05-19 14:27 | A.OFFPC_ITS ---
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 Accompanied by: Self / Same As Patient Allergies Azythromycin Adverse Reaction (Unknown, Uncoded 05/19/24 14:56) diarrhea Medication List - Last Reconciled 05/19/24 by Sharan Omer PA-C clobetasol 0.05% 1 appl topical DAILY clonidine HCl 0.1 mg PO BID 10 days hydroxyzine HCl 25 mg PO BEDTIME 14 days ketoconazole 2% 1 appl topical 3XW 4 weeks lisinopril 10 mg PO DAILY 30 days multivitamin 1 tab PO DAILY omeprazole 20 mg PO DAILY@0630 ondansetron 8 mg PO Q8H PRN 7 days Tobacco use date assessed: 12/19/23 Dental Screening Dental Screen Date: 02/19/24 HPI f/u HTN HPI Details Patient is a 48-year-old male here today for a f/u visit..? Patient has a past medical history significant for alcohol use disorder, diverticulitis, HTN. Psoriasis: The patient also has a history of psoriasis, which has significantly affected the scalp, causing itchiness and flakiness; symptoms are reportedly worsening. Psoriatic lesions have also been noted on the legs but are less bothersome. Various treatments, including creams and medicated shampoos, have been trialed with limited success. He has found that ketoconazole shampoo was helpful for his scalp itchiness and did endorse. Has dermatology appointment but not until August 2024 .. HTN:? Patient's blood pressure today in office acceptable. His lisinopril dose was increased to 10 mg at last office visit which seems to have better control over his blood pressure. .. Alcohol use disorder:? He reports he has tried to cut down drinking . Reports drinking more wine and last beer. Only drinking a small amount of vodka now.. He does understand this is detrimental to his health and will try to stopped drinking again. Of note he did have some brief sobriety in the past. He is interested in quitting drinking in is willing to try withdrawal medications. He has been referred to the addiction treatment center though has not been able to manage an appointment. panic disorder : He does report his anxiety has been elevated lately due to a few changes in his life. He reports he is going to be getting and getting a new job in the next 6 months. He does report having a few panic attacks recently in his asking if he can have as needed medication. He has been using clonidine as needed though reports an intolerable dry mouth. PLAN: Will use lorazepam 1 mg as needed for panic disorder. He is willing to start SSRI therapy thus will start fluoxetine 10 mg daily to help reduce his overall anxiety. [facility] Medical History Tick bite HTN (hypertension) ETOH abuse Surgical History No pertinent past surgical history Social History Household Members: None Housing: [facility] Do you presently have visiting nurse or other home services: No Alcohol intake: current Alcohol intake frequency: holidays/special occasions only Alcohol type: beer and hard liquor Patient Tobacco Use Status: Former Tobacco user Tobacco use type: Smokeless Tobacco e-Cigarette/Vaping Use: Former Use Second Hand Smoke Exposure: No service: No Current occupational status: employed Current occupational exposures/hazards: No Cognitive needs: No Hearing needs: No Vision needs: No Questionnaire PHQ-9 Over the last 2 weeks, how often have you been bothered by any of the following problems? 1. Little interest or pleasure in doing things: several days 2. Feeling down, depressed, or hopeless: several days 3. Trouble falling or staying asleep, or sleeping too much: several days 4. Feeling tired or having little energy: several days 5. Poor appetite or overeating: not at all 6. Feeling bad about yourself - or that you are a failure or have let yourself or your family down: not at all 7. Trouble concentrating on things, such as reading the newspaper or watching television: not at all 8. Moving or speaking so slowly that other people could have noticed. Or the opposite - being so fidgety or restless that you have been moving around a lot more than usual: not at all 9. Thoughts that you would be better off or of hurting yourself in some way: not at all Total score: 4 Depression Screening Interpretation: Positive Depression Screening Done: Yes Source: Developed by Drs. Miguel Angel Driver, Racheal Smith, Danilo Parks and colleagues, with an educational ciro from [employer]. Thrive Questionnaire Date Thrive assessed: 05/19/24 I am a: Patient What is your living situation today?: I have a steady place to live Within the past 12 months, did the food you bought not last and you didn't have the money to get more?: Never true Within the past 12 months, did you worry whether your food would run out before you got money to buy more?: Never true Do you have trouble paying for medicines?: No Do you have trouble getting transportation to medical appointments?: No Do you have trouble paying your heating and electricity bill?: No Do you have trouble taking care of your child, family member or friend?: No Do you have trouble with day-to-day activities such as bathing, preparing meals, shopping, managing finances, etc.?: No Are you currently unemployed and looking for a job?: No Are you interested in more education?: No Please select the resources that you would like help with: None Currently or been in a relationship where the following occur: No concerns reported THRIVE Score: 0 AUDIT C Alcohol Use Questionnaire (AUDIT-C) 1. How often do you have a drink containing alcohol?: 4 or more times a week 2. How many drinks containing alcohol do you have on a typical day when you are drinking?: 7 to 9 3. How often do you have six or more drinks on one occasion?: Weekly Total Score: 10 JAMEY-7 AMB Questionnaire JAMEY-7 Date JAMEY - 7 assessed: 05/19/24 Feeling nervous, anxious, or on edge: 1 = Several days Not being able to stop or control worryin = Not at all Worrying too much about different things: 1 = Several days Trouble relaxin = Not at all Being so restless that it is hard to sit still: 0 = Not at all Becoming easily annoyed or irritable: 0 = Not at all Feeling afraid as if something awful might happen: 0 = Not at all Total JAMEY-7 score (0-4 normal; 5-9 mild; 10-14 moderate; 15-21 severe): 2 Source: Developed by Drs. Miguel Angel Driver, Racheal Smith, Danilo Parks and colleagues, with an educational ciro from [employer]. JAMEY-7 Assessment Billing JAMEY-7 Assessment Tool: JAMEY-7 Assessment 76500 Review of Systems Const Denies headache(s) Eyes Denies loss of vision ENT Denies vertigo, Denies dizziness, Denies headache(s) and Denies sore throat Card Denies chest pain, Denies leg edema and Denies lightheadedness Resp Denies cough, Denies hemoptysis and Denies wheezing GI Denies abdominal pain, Denies melena, Denies constipation, Denies diarrhea and Denies vomiting Denies dysuria, Denies urinary frequency and Denies urinary urgency Musc Denies arthralgias, Denies joint swelling, Denies numbness and Denies tingling Neuro Denies Abnormal speech present, Denies behavioral changes, Denies vertigo, Denies dizziness, Denies headache(s), Denies loss of vision, Denies memory loss, Denies numbness and Denies tingling Psych Denies anxiety, Denies behavioral changes, Denies depression, Denies memory loss and Denies panic attacks Efraín/Lymph Denies easy bleeding and Denies easy bruising Aller/Immun Denies wheezing Physical exam (Primary Care) Vital Signs: Last Vital Signs Pulse 97 05/19/24 14:28 BP 120/98 H 05/19/24 14:28 Pulse Ox 98 05/19/24 14:28 Oxygen Delivery Method Room Air 05/19/24 14:28 BMI result Body Mass Index 25.8 Tobacco/Smoking Status: Tobacco use Status Tobacco use date assessed 12/19/23 05/19/24 14:35 Patient Tobacco Use Status Former Tobacco user 05/19/24 14:35 Tobacco use type Smokeless Tobacco 05/19/24 14:35 e-Cigarette/Vaping Use Former Use 05/19/24 14:35 PHQ-9: PHQ-9 Score PHQ-9: Total score 4 05/19/24 14:35 Depression Screening Interpretation: Positive Thrive Assessment: Date of Thrive Assessment Date Thrive assessed 05/19/24 05/19/24 14:35 Currently or been in a relationship where the following occur: No concerns reported Const General: healthy appearing, no acute distress, alert and awake Nutritional Appearance: well nourished Orientation/consciousness: oriented to person, oriented to place and oriented to time HENMT Ears: TM's normal bilaterally General nose exam: Normal nasal mucous membranes and turbinates present Eyes Conjunctivae: conjunctivae normal Sclerae: sclerae normal Pupils: Equal, round and reactive pupils present Neck Neck: Yes no lymphadenopathy and Yes no JVD Thyroid: Thyroid normal Carotids: no bruits Resp Effort & Inspection: normal respiratory effort and not tachypneic Auscultation: no crackles, no rales, no rhonchi and no wheezes Cardio Rate: regular rate Rhythm: regular rhythm Heart sounds: no murmurs and normal S1 and S2 GI Palpation (GI): Soft to palpation, nontender, no hepatomegaly and no splenomegaly Auscultation: normal bowel sounds Skin General skin exam: no rashes or lesions noted and dry skin Neuro General: oriented to person, oriented to place and oriented to time Cranial nerves: Yes Equal, round and reactive pupils present Speech: No Abnormal speech present Gait exam (Neuro): Normal gait present Motor exam (neuro): no tremor noted Extrem Right upper extremity: full ROM Left upper extremity: full ROM Right lower extremity: full ROM; no edema Left lower extremity: full ROM; no edema Psych Mental Status: mental status grossly normal Speech and movement: Normal speech and movement present Affect: normal affect Attitude: cooperative Thought process: Normal thought process present Coding Level of Care Code Est Pt Level 4 (22224) Diagnoses Primary hypertension I10 Hypertension type: primary hypertension Psoriasis L40.9 Panic disorder F41.0 Alcohol use disorder F10.90 JAMEY (generalized anxiety disorder) F41.1 Additional Codes JAMEY-7 Assessment Billing - JAMEY-7 Assessment Tool: JAMEY-7 Assessment 69675 ([id number]) Assessment & Plan Assessment & Plan (1) HTN (hypertension): Code(s): I10 - Essential (primary) hypertension Category: Medical Qualifiers: Hypertension type: primary hypertension Qualified Code(s): I10 - Essential (primary) hypertension Plan: His blood pressure today in office acceptable. We have increased his lisinopril to 10 mg which has been helpful. Goal blood pressures to remain below 140/90 (2) Psoriasis: Code(s): L40.9 - Psoriasis, unspecified Category: Medical Plan: Patient continues to have psoriasis plaques over his scalp though now has spread to his chest and lower extremities. He has upcoming appointment with Dermatology. He does report ketoconazole shampoo has helped his scalp manifestation. Will try alternative topical steroid ointment on his skin manifestations on his extremities. (3) Panic disorder: Code(s): F41.0 - Panic disorder [episodic paroxysmal anxiety] Category: Medical Plan: As per HPI patient does suffer from a generalized anxiety disorder with panic. Has used clonidine though has intolerable dry mouth side effect. He is willing to start daily medication to help reduce his anxiety. (4) Alcohol use disorder: Category: Medical Plan: Patient does admit still drinking though a bit last. He has been drinking more wine rather than beers. Also has reduced his vodka intake. He does understand he needs to quit drinking. He did quit drinking for year and a half at 1 point though relapsed. (5) JAMEY (generalized anxiety disorder): Code(s): F41.1 - Generalized anxiety disorder Category: Medical Plan: He reports his anxiety has been elevated as of late. He does admit to taking some of his girlfriend's lorazepam to get him through the acute anxiety face. He is willing to restart his SSRI therapy thus will try alternative fluoxetine 10 mg. Will supply patient with 7 tablets of lorazepam to use on an as needed basis for panic disorder Orders: Orders Prostate Specific Antigen Scr Today I10 - Essential (primary) hypertension, Z12.5 - Encounter for screening for malignant neoplasm of prostate Lipid Panel Today I10 - Essential (primary) hypertension Microalbumin, Random (w Creat) Today I10 - Essential (primary) hypertension Comprehensive [place]. Panel Fast Today I10 - Essential (primary) hypertension Complete Blood Count no Diff Today I10 - Essential (primary) hypertension Medications: New mometasone 0.1% 1 appl topical DAILY 30 days 45 grams 1RF L40.9 - Psoriasis, unspecified lorazepam 1 mg PO DAILY 7 days PRN 7 tabs 0RF anxiety F41.1 - Generalized anxiety disorder fluoxetine 10 mg PO DAILY 30 days 30 caps 3RF F41.1 - Generalized anxiety disorder Changed From lisinopril 10 mg PO DAILY 30 days 30 tabs 3RF I10 - Essential (primary) hypertension To lisinopril 10 mg PO DAILY 90 days 90 tabs 2RF I10 - Essential (primary) hypertension Refilled ketoconazole 2% 1 appl topical 3XW 4 weeks 120 mL 3RF L40.9 - Psoriasis, unspecified Discontinued clonidine HCl Discontinued Reason: Doctor's Order 0.1 mg PO BID 10 days 20 tabs 1RF F10.930 - Alcohol use, unspecified with withdrawal, uncomplicated Patient Instructions: Goal: Blood pressure to be below 140/90 Barriers: Adherence to physical activity and healthy eating habits
[2024-05-19 14:28] VITALS: BP 120/98; PULSE 97; O2SAT 98; BMI 25.8
--- OUTSIDE RECORDS SUMMARY | 2024-05-19 17:11 | XMS_ITS | Patient Health Record ---
Author Organization [facility] Address [address] [place] [address] Care Team Providers Care Resident Services Director Name Role Phone Sharan Omer Primary Care Provider UnavailMiguel Angel Elias Unavailable [phone] Allergies No Known Allergies Reason For Referral No Information Medications Medication SIG (Take, Route, Fr equency, Duration) Notes Start Date End Date Status Lisinopril 10 MG Oral for 90 A ctive Omeprazole 20 MG Oral for 90 A ctive Immunizations Vaccine Route Administration Date Status Comme nts Influenza Unknown 03/28/2021 Refused Social History Tobacco Use: Social History Observation Description Date Details (start date - stop date) Former Smoker NA - NA Tobacco Use/Smoking Question Answer Notes Patient is [...] drinks (3 points) Points 7 Interpretation Positive Section Notes: Vapes when he drinks--Heavy EtOH with > 7 drinks per day Problems Problem Type SNOMED Code ICD Code Onset Dates Problem Status W/U Status Risk Notes Problem 2706622 Diverticulitis o f large intestine without perforation or abscess without bleeding (K57.32) Active confirmed Problem 826743323 Abnormal CT scan , colon (R93.3) Active confirmed Problem Esophageal reflux finding (504403279) Gastroesophageal reflux (K21.9) Active confirmed Problem Diverticulosis of colon (036637082) Diverticulosis of colon (K57.30) Active confirmed Problem 734565672 Gastroesophageal reflux disease, unspecified whether esophagitis present (K21.9) Active confirmed Plan Of Treatment Pending Test Test Name Order Date Pathology 04/28/2021 Future Test Test Name Order Date UPPER GI ENDOSCOPY 03/28/2021 COLONOSCOPY 03/28/2021 Insurance Providers Payer Name Payer Address Payer Phone Subscriber Number Group Number Insured Name Patient Relationship to Insured Coverage Start Date Coverage End Date [facility] [address] [address] [place], [place] [id number] DIANNA BAUTISTA Self - patient is the insured Medical (General) History Medical History History ICD Code Hypertension Denies [place],DM,CVA,Lung disease,renal dise ase Diverticulitis 09/2020--CT at [facility] [place]-david sandeep with outpt antibiotics GERD--on omeprazole for years Surgical History Surgery Date(Month/Year) Hand surgery-- right--as a child---while playing with firecrackers
== END 2024-05-19 15:20 | disposition home or self-care (01) ==
LOC: HO.HMCH 14:04
PROVIDERS: PCP Physician Assistant; Visit Provider Physician Assistant
DX: I10 Essential (primary) hypertension (principal); L40.9 Psoriasis, unspecified; F41.0 Panic disorder [episodic paroxysmal anxiety]; F10.90 Alcohol use, unspecified, uncomplicated; F41.1 Generalized anxiety disorder